=== PATIENT | female | born 1990 | race Caucasian/White ===

== ENCOUNTER → 2017-02-24 | Outpatient (CLI) | payer OTHER ==
[~2017-02-24] MED LIST: ACET-1311 PO; DLD/2 PO; DOCU100C31 PO; ERTA1INJ IV; FAMO20TA11 PO; FERR1TAB13 PO; FERR325T5 PO; FOLI1TAB7 PO; HPRI5M SQ; HYDR-3419 PO; HYDR0.1C8 TD; HYDR2TAB48 PO; HYDR4TAB78 PO; LCTX PO; LIDO5DIS10 TOP; OXYC1TAB3 PO; POLY3350 PO; PRENTAB26 PO; SENN-65 PO
[2017-02-24 17:25] LABS: BASO % 0.2 %; BASO ABS # 0.02 K/uL (0-0.2); COMPLETE YES; EOS % 4.1 %; IG% 0.7 %; LYMPH % 25.6 %; LYMPH ABS # 3.13 K/uL (1.2-3.4); MEAN CELL VOLUME 91.3 fL (80-100); MEAN CORPUSCULAR HEMOGLOBIN 29.6 pg (25-34); MEAN CORPUSCULAR HGB CONC 32.4 g/dl (32-36); MEAN PLATELET VOLUME 10.5 fL (7.4-10.4); MONO % 4.6 %; NEUT % 64.8 %; PLATELET COUNT 216 K/uL (130-400); WHITE BLOOD COUNT 12.25 K/uL (4.8-10.8)
[2017-02-24 18:54] LABS: URINE APPEARANCE CLEAR (CLEAR); URINE BILIRUBIN NEG (NEG); URINE COLOR DK YELLOW; URINE NITRITE NEG (NEG); URINE PH 6.5 (4.5-7.5); URINE SPECIFIC GRAVITY 1.021 (1.000-1.030); UROBILINOGEN NEG (NEG)
[2017-02-24 19:02] LABS: MANUAL MICROSCOPIC REQUIRED? NO; REVIEW REQ? NO
[2017-02-24 20:37] LABS: GTGD 50 Grams
[2017-02-27 14:28] LABS: CHLAMYDIA TRACH RNA*** NOT DETECTED (NOT DETECTED); GC (NEIS GONORRHOEAE)RNA** NOT DETECTED (NOT DETECTED)
== END | disposition home or self-care (01) ==
LOC: C.LAB1850 16:08
PROVIDERS: ATTEND Obstetrics & Gynecology
DX: Z34.82 Encounter for supervision of other normal pregnancy, second trimester (principal)

== ENCOUNTER → 2017-02-24 | Outpatient (CLI) | payer OTHER | END | disposition home or self-care (01) | LOC: C.PAPS 08:05 | PROVIDERS: ATTEND Obstetrics & Gynecology | DX: O09.30 Supervision of pregnancy with insufficient antenatal care, unspecified trimester (principal); R87.616 Satisfactory cervical smear but lacking transformation zone ==

== ENCOUNTER 2017-04-16 17:58 | Emergency (ER) | payer OTHER ==
[~2017-04-16] VITALS: Ht 165.1 cm; Wt 83.3 kg
[~2017-04-16 17:58] MED LIST changes: -DLD/2 PO; -DOCU100C31 PO; -ERTA1INJ IV; -FAMO20TA11 PO; -FERR325T5 PO; -FOLI1TAB7 PO; -HPRI5M SQ; -HYDR-3419 PO; -HYDR0.1C8 TD; -HYDR4TAB78 PO; -LCTX PO; -LIDO5DIS10 TOP; -OXYC1TAB3 PO; -POLY3350 PO; -SENN-65 PO
[2017-04-16 18:05] VITALS: Ht 165.1 cm; Wt 83.3 kg
[2017-04-16] MEDS ORDERED: SODIUM CHLORIDE 0.9% 1000ML 1,000 ML IV STA (18:31)
--- NOTE | 2017-04-16 18:41 | EMERGENCY ROOM VISIT NOTE ---
History Report prepared by Mir: Collins Mei Under the Supervision of: Dr. Rhonda Cee D.O. First contact with patient: 18:15 Chief Complaint: FEVER Stated Complaint: FEVER, VOMITING History of Present Illness The patient is a 26 year old female who presents to the Emergency Room with complaints of a constant fever noticed 1600 today. She states that the fever was 100.9, and then it was 101.5 at 1700. The patient states that she woke up, and she vomited, and then she vomited before arrival here. She states that she has a history of a chronic hip infection since last February, and she is not currently on any antibiotics. She states that her hip is a little more painful than usual, though it is not having any drainage. The patient additionally states that she is six [age] months , and she has been more fatigued today, and she has been having come abdominal cramping. Pt denies headache, sore throat, cough, vaginal discharge or bleeding, change in vision, chest pain, shortness of breath, diarrhea, pain with urination, and melena. She states that no one around her has been sick, recent travel, and she states that she has not had a flu shot. Review of EMR shows patient seen by wound care clinic yesterday and evaluated. Small area of dehiscence along old wound status post wound VAC just superior to the right hip. According to wound care clinic note, this was cultured and is pending at this time. Patient was advised on how to do dressing changes. Source of History: patient Onset: 1600 Position: other (global) Quality: other (fever) Timing: constant Associated Symptoms: + vomiting Note: Associated symptoms: Right hip pain Review of Systems See HPI for pertinent positives & negatives. A total of 10 systems reviewed and were otherwise negative. Past Medical & Surgical Medical Problems: (1) heart rate non-reassuring affecting management of mother (2) Post term Surgical Problems: (1) History of tonsillectomy (2) Previous section Family History No significant family history Social History Smoking Status: Current Every Day Smoker Alcohol Use: none Drug Use: none Marital Status: single Housing Status: lives with family Occupation Status: unemployed Current/Historical Medications Scheduled Ferrous Sulfate (Ferrous Sulfate), 325 MG PO DAILY Multivit/Min/Iron/Fol Ac/Pren ( Vitamin), 1 TAB PO DAILY Scheduled PRN Hydromorphone HCl (Hydromorphone HCl), 2 MG PO Q6H PRN for Pain Allergies Coded Allergies: Penicillins (Verified Allergy, Mild, HIVES, 03/10/16) Amoxicillin (Verified Allergy, Unknown, Rash, 03/10/16) Clindamycin (Verified Allergy, Unknown, Rash, 03/10/16) Sulfamethoxazole w/Trimethoprim (Verified Allergy, Unknown, RASH, 03/10/16) Physical Exam Vital Signs Date Time Temp Pulse Resp B/P (MAP) Pulse Ox O2 Delivery O2 Flow Rate FiO2 04/17/17 03:03 78 104/50 97 04/17/17 02:27 37.3 04/17/17 02:06 70 04/17/17 01:18 38.4 80 106/50 96 Room Air 04/16/17 22:00 37.0 04/16/17 22:00 37.0 89 15 114/59 98 Room Air 04/16/17 20:07 90 17 109/54 96 Room Air 04/16/17 18:05 37.3 107 18 115/55 96 Room Air Physical Exam GENERAL: alert, well appearing, well nourished, no distress, non-toxic EYE EXAM: normal conjunctiva, PERRL and EOM's grossly intact OROPHARYNX: no exudate, no mucocutaneous lesions, no erythema, lips, buccal mucosa, and tongue normal and mucous membranes are moist NECK: supple, no nuchal rigidity, no adenopathy, non-tender LUNGS: Clear to auscultation. Normal chest wall mechanics HEART: no murmurs, S1 normal and S2 normal ABDOMEN: Fundus is palpable consistent with dates. Mild generalized abdominal discomfort. Normo-active bowel sounds, no masses, no rebound or guarding. BACK: Back is symmetrical on inspection and there is no deformity, no midline tenderness, no CVA tenderness. SKIN: Small area of dehiscence that appears chronic along an otherwise healed wound surrounded by scarring. No increased warmth. No surrounding erythema to suggest cellulitis. No active drainage. UPPER EXTREMITIES: upper extremities are grossly normal. LOWER EXTREMITIES: Pain with palpation over the right hip. No pitting edema. NEURO EXAM: Normal sensorium, cranial nerves II-XII grossly intact, normal speech, no gross weakness of arms, no gross weakness of legs. Gross sensation intact. Medical Decision & Procedures ER Provider Diagnostic Interpretation: Radiology results have been interpreted by the radiologist and reviewed by me. CHEST ONE VIEW PORTABLE HISTORY: fever COMPARISON: Chest 04/01/2016. FINDINGS: The lungs are clear. Cardiac silhouette is normal in size. No pleural effusions. No pneumothorax. Incidental is made of a right azygos lobe. IMPRESSION: No acute process. Electronically signed by: Randy Augustine M.D. 04/16/2017 6:48 PM Dictated Date/Time: 04/16/2017 6:47 PM LIMITED (US) HISTORY: Generalized abdominal pain. COMPARISON STUDY: Abdomen and pelvis CT 04/01/2016. FINDINGS: Transabdominal scanning of the fetus was performed. heart rate was 156 bpm. The fetus is in a breech presentation. The cervix appears was. Posterior placenta. No subchorionic hematoma. Normal ovaries. Amniotic fluid index of 13.8 cm. Cumulative ultrasound age of 24 weeks and 2 days plus or minus one week and 1 day. A anatomical survey was not performed. IMPRESSION: Single viable 24 week and 2 day intrauterine gestation with a heart rate of 156 bpm. Electronically signed by: Randy Augustine M.D. 04/16/2017 9:34 PM Dictated Date/Time: 04/16/2017 9:31 PM MRI right hip: Severe uniform joint space narrowing in the right hip with small joint effusion. There is marrow edema and the acetabulum, femoral head, and femoral neck. There is a 70 chondral fracture of the lateral femoral head measuring 12 mm. Differential considerations include septic arthritis, unilateral inflammatory arthropathy, and rapidly progressive arthritis of the hip. Correlation with diagnostic joint aspiration is recommended. Radiologist: Rosas Hill M.D. Laboratory Results 04/16/17 18:59 Red Blood Count 3.99, Mean Corpuscular Volume 91.7, Mean Corpuscular Hemoglobin 30.3, Mean Corpuscular Hemoglobin Concent 33.1, Mean Platelet Volume 10.0, Neutrophils (%) (Auto) 67.7, Lymphocytes (%) (Auto) 22.0, Monocytes (%) (Auto) 6.8, Eosinophils (%) (Auto) 2.2, Basophils (%) (Auto) 0.1, Neutrophils # (Auto) 9.11, Lymphocytes # (Auto) 2.96, Monocytes # (Auto) 0.92, Eosinophils # (Auto) 0.29, Basophils # (Auto) 0.02 04/16/17 18:59 Test 04/16/17 18:55 04/16/17 18:59 04/16/17 19:35 Influenza Type A Antigen Neg for Influ A (NEG) Influenza Type B Antigen Neg for Influ B (NEG) White Blood Count 13.46 K/uL (4.8-10.8) Red Blood Count 3.99 M/uL (4.2-5.4) Hemoglobin 12.1 g/dL (12.0-16.0) Hematocrit 36.6 % (37-47) Mean Corpuscular Volume 91.7 fL (80-100) Mean Corpuscular Hemoglobin 30.3 pg (25-34) Mean Corpuscular Hemoglobin Concent 33.1 g/dl (32-36) Platelet Count 211 K/uL (130-400) Mean Platelet Volume 10.0 fL (7.4-10.4) Neutrophils (%) (Auto) 67.7 % Lymphocytes (%) (Auto) 22.0 % Monocytes (%) (Auto) 6.8 % Eosinophils (%) (Auto) 2.2 % Basophils (%) (Auto) 0.1 % Neutrophils # (Auto) 9.11 K/uL (1.4-6.5) Lymphocytes # (Auto) 2.96 K/uL (1.2-3.4) Monocytes # (Auto) 0.92 K/uL (0.11-0.59) Eosinophils # (Auto) 0.29 K/uL (0-0.5) Basophils # (Auto) 0.02 K/uL (0-0.2) RDW Standard Deviation 44.7 fL (36.4-46.3) RDW Coefficient of Variation 13.4 % (11.5-14.5) Immature Granulocyte % (Auto) 1.2 % Immature Granulocyte # (Auto) 0.16 K/uL (0.00-0.02) Erythrocyte Sedimentation Rate 5 mm/hr (0-21) Prothrombin Time 10.2 SECONDS (9.0-12.0) Prothromb Time International Ratio 1.0 (0.9-1.1) Anion Gap 7.0 mmol/L (3-11) Est Creatinine Clear Calc Drug Dose 233.0 ml/min Estimated GFR () > 150.0 Estimated GFR (Non- 145.0 BUN/Creatinine Ratio 17.7 (10-20) Lactic Acid Level 0.6 mmol/L (0.4-2.0) Calcium Level 8.0 mg/dl (8.5-10.1) Total Bilirubin 0.2 mg/dl (0.2-1) Aspartate Amino Transf (AST/SGOT) 11 U/L (15-37) Alanine Aminotransferase (ALT/SGPT) 14 U/L (12-78) Alkaline Phosphatase 81 U/L (45-117) C-Reactive Protein 0.50 mg/dl (0-0.29) Total Protein 6.0 gm/dl (6.4-8.2) Albumin 2.8 gm/dl (3.4-5.0) Globulin 3.2 gm/dl (2.5-4.0) Albumin/Globulin Ratio 0.9 (0.9-2) Lyme Disease IgG Antibody NEG (NEG) Lyme Disease IgM Antibody NEG (NEG) Urine Color DK YELLOW Urine Appearance CLOUDY (CLEAR) Urine pH 6.0 (4.5-7.5) Urine Specific [place] 1.025 (1.000-1.030) Urine Protein NEG (NEG) Urine Glucose (UA) NEG (NEG) Urine Ketones TRACE (NEG) Urine Occult Blood NEG (NEG) Urine Nitrite NEG (NEG) Urine Bilirubin NEG (NEG) Urine Urobilinogen NEG (NEG) Urine Leukocyte Esterase TRACE (NEG) Urine WBC (Auto) 1-5 /hpf (0-5) Urine RBC (Auto) 0-4 /hpf (0-4) Urine Hyaline Casts (Auto) 0 /lpf (0-5) Urine Epithelial Cells (Auto) >30 /lpf (0-5) Urine Bacteria (Auto) NEG (NEG) Urine Pathogenic Casts /lpf (0) Urine Mucus PRESENT (NONE PRSENT) Date/Time Source Procedure Growth Status 04/16/17 19:05 Throat Group A Streptococcus Screen - Final SPECIMEN NEGATIVE FOR GROUP A BETA ST... Complete 04/16/17 19:05 Throat Group A Streptococcus Screen ([facility]TERA) - Final NO BETA STREP. ISOLATED. Complete Laboratory results per my review. Medications Administered Medications (Trade) Dose Ordered Sig/Lennie Route Start Time Stop Time Status Last Admin Dose Admin Ondansetron HCl (Zofran 8mg Iv) 8 mg NOW ONCE IV 04/16/17 18:45 04/16/17 18:46 DC 04/16/17 19:00 8 MG Sodium Chloride 1,000 ml @ 999 mls/hr Q1H1M STAT IV 04/16/17 18:31 04/16/17 19:31 DC 04/16/17 19:00 999 MLS/HR Metoclopramide HCl (Reglan Inj) 10 mg NOW STAT IV 04/16/17 20:08 04/16/17 20:10 DC 04/16/17 20:19 10 MG Diphenhydramine HCl (Benadryl Inj) 12.5 mg NOW STAT IV 04/16/17 20:08 04/16/17 20:10 DC 04/16/17 20:18 12.5 MG Sodium Chloride 1,000 ml @ 999 mls/hr Q1H1M STAT IV 04/17/17 01:25 04/17/17 02:25 DC 04/17/17 01:40 999 MLS/HR Ondansetron HCl (Zofran Inj) 4 mg NOW STAT IV 04/17/17 01:25 04/17/17 01:27 DC 04/17/17 01:40 4 MG Acetaminophen (Tylenol Tab) 1,000 mg NOW STAT PO 04/17/17 01:25 04/17/17 01:27 DC 04/17/17 01:40 1,000 MG ECG Indication: other (fever) Rate (beats per minute): 87 Rhythm: normal sinus Findings: no acute ischemic change, no ectopy, other (Normal axis and normal intervals) ED Course 1817: The patient was evaluated in room B3. A complete history and physical exam was performed. 1831: Sodium Chloride 1000 ml @ 999 mls/hr IV 1845: Zofran 8mg IV 2002: I reevaluated the patient, and she states that she is still nauseous. 2007: Benadryl Inj 12.5mg IV, Reglan Inj 10mg IV 2145: I discussed the patient's case with Dr. Augustine, Radiology, and he recommends getting an MRI without. 2153: I reevaluated the patient, and I updated her on the treatment plan. 0125: Updated patient, leading to have slight headache and nausea again. Stated awaiting MRI results. 0140: I did patient results, temperature now 38.2. Tylenol and Zofran ordered as well as additional IV fluids. Page to [facility] orthopedics to discuss with her orthopedic surgeon down there Dr. Aldrich. 0155: D/W Dr. 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. Discussed hx, presentation and complaints tonight, labs, imaging. Able to compare to old records there including femur xray, and recent labs 03/23 with WBC 14.9. She had been seen the end of February and follow-up and had reported worsening right hip pain at that time. She had also been slowly decreasing her pain medications. Feels findings likely unchanged and chronic on MRI tonight. Has low suspicion for new infection. Would advise close follow-up but feels patient can be safely discharged. He will notify his colic the patient's primary orthopedic surgeon, but also asked that the patient call down to them on Tuesday to discuss close follow-up ligament injury with orthopedics as well as possibly with infectious disease. 0210: Updated patient and family at bedside in all results and discussion with [facility] orthopedics. They're concerned about her being by herself tonight given that she has been ill. Discussed with them that orthopedics felt she could be discharged and have close follow-up, and that I've no other focal source of infection. Patient with no other signs and symptoms to suggest need for lumbar puncture to rule out meningitis/encephalitis. More likely viral syndrome. Patient will stay with her mom tonight as a precaution. Discussed with them at length need for close follow-up, symptoms watch and return for, differential diagnosis, and again went over all results. He states they're hesitant to go home given that when she was first seen here last year she medic coming back to days later needed life flighted. I discussed with them the circumstances at that time versus the extensive testing and reassuring evaluation/results tonight. Discussed with them that based my conversation with orthopedics if they felt she was getting worse orthopedics plan was to discuss her case with infectious disease again to decide if she needed to be restarted on antibiotics, but this will need to be done carefully with ID input as well as OB input. They did not suggest that we restart antibiotics tonight. Medical Decision Differential diagnosis: Etiologies such as viral syndrome, otitis, pharyngitis, pneumonia, influenza, meningitis, urinary tract infection, sepsis, bacteremia, as well as others were entertained. Pt well appearing here despite fever at home but complicated history. Doubt any acute ob emergency, US reassuring. Labs reassuring. Mild leukocytosis which may be from alone, but is improved from one month ago after discussion with ortho at [facility]. Cultures sent from blood and wound clinic culture still unresulted from yesterday. No obvious wound infection or cellulitis. Strep negative. No abd pain. Initially pt afebrile, did spike temp while here, which responded to tylenol. Pt stated felt improved with IVF. No obvious infiltrate on cxr, UA not convincing for uti, did not feel warranted abdominal imaging given lack of other sx/exam findings, no abn discharge, no evidence of ENT infection other than mild nasal congestion/ rhinorrhea. Pt observed for many hours as a precaution and given recent hx, discussed with rad MRI of hip. These findings were then discussed with ortho at [facility]. Pt continued to appear well. Tolerated po. Discussed with her possible viral syndrome. Did not feel warranted empiric antibiotics. Discussed with pt close f/u with ortho as discussed with them. Discussed f/u with produce buyer as a precaution given her complicated hx, discussed at length sx to watch/return for, she verbalized understanding and was agreeable with plan. I also asked pt's name to be left with counseling case manager or charge nurse to receive a follow-up call in 24 hours to check on her. Consults Time Called: 2139 Consulting Physician: Dr. Augustine, Radiology Returned Call: 2145 I discussed the patient's case with Dr. Augustine, Radiology, and he recommends getting an MRI without. Impression Primary Impression: Fever Additional Impressions: Nausea & vomiting Scribe Attestation The scribe's documentation has been prepared under my direction and personally reviewed by me in its entirety. I confirm that the note above accurately reflects all work, treatment, procedures, and medical decision making performed by me. Departure Information Dispostion Home / Self-Care Referrals Jared Mendez M.D. (MEDICAL) (PCP) Patient Instructions My [facility] Additional Instructions Please follow up with your environmental management specialist on Tuesday. They're aware of your ER visit and will alert your regular orthopedic surgeon. Please drink plenty of water, use the nausea medication as needed. If you have pain or a fever please take Tylenol as directed on the bottle. Please also call and alert your PEST CONTROL SUPERVISOR. The ultrasound of your baby was reassuring. However given your complicated history and illness, please be rechecked by them to sure that your is progressing normally and that there are no other new concerns. If your temperature does not respond to Tylenol appropriately, your temperature is higher than 104F, he develop a worsening cough, noticed a rash or sores, have increased draining from your old wound, develop diarrhea, worsening abdominal pain, vaginal discharge, headache, recurrent vomiting, or you have any other new or concerning symptoms, please return the emergency room. The wound on your right side was cultured in the wound care clinic and that is pending. Blood cultures were drawn tonight and are pending also. Please return to the ER if you feel worse in any way. If any of the cultures are abnormal you will receive a phone call. Problem Qualifiers Primary Impression: Fever Fever type: unspecified Qualified Codes: R50.9 - Fever, unspecified Additional Impressions: Nausea & vomiting Vomiting type: unspecified Vomiting Intractability: non-intractable Qualified Codes: R11.2 - Nausea with vomiting, unspecified Weeks of gestation: 24 weeks Qualified Codes: Z3A.24 - 24 weeks gestation of
[2017-04-16] MEDS ORDERED: ONDANSETRON 8 MG/54 ML D5W IV ONE (18:45)
--- NOTE | 2017-04-16 18:49 | DIAGNOSTIC IMAGING REPORT ---
CHEST ONE VIEW PORTABLE HISTORY: fever COMPARISON: Chest 04/01/2016. FINDINGS: The lungs are clear. Cardiac silhouette is normal in size. No pleural effusions. No pneumothorax. Incidental is made of a right azygos lobe. IMPRESSION: No acute process. Electronically signed by: Randy Augustine M.D. 04/16/2017 6:48 PM Dictated Date/Time: 04/16/2017 6:47 PM
[2017-04-16] MEDS ORDERED: FERR325T5 PO (19:12)
[2017-04-16] MEDS ORDERED: DLD/2 PO (19:12)
[2017-04-16 19:18] LABS: BASO % 0.1 %; BASO ABS # 0.02 K/uL (0-0.2); COMPLETE YES; EOS % 2.2 %; HEMATOCRIT 36.6 % (37-47); IG% 1.2 %; LYMPH ABS # 2.96 K/uL (1.2-3.4); MEAN CELL VOLUME 91.7 fL (80-100); MEAN CORPUSCULAR HEMOGLOBIN 30.3 pg (25-34); MEAN CORPUSCULAR HGB CONC 33.1 g/dl (32-36); MONO % 6.8 %; NEUT % 67.7 %; PLATELET COUNT 211 K/uL (130-400); RED BLOOD COUNT 3.99 M/uL (4.2-5.4); WHITE BLOOD COUNT 13.46 K/uL (4.8-10.8)
[2017-04-16 19:29] LABS: PROTHROMBIN TIME (PATIENT) 10.2 SECONDS (9.0-12.0)
[2017-04-16 19:45] LABS: URINE APPEARANCE CLOUDY (CLEAR); URINE BILIRUBIN NEG (NEG); URINE COLOR DK YELLOW; URINE EPITHELIAL CELL AUTO >30 /lpf (0-5); URINE NITRITE NEG (NEG); URINE SPECIFIC GRAVITY 1.025 (1.000-1.030); UROBILINOGEN NEG (NEG); ZZUR CULT IF INDIC CLEAN CATCH NO
[2017-04-16 19:47] LABS: ALT/SGPT 14 U/L (12-78); AST/SGOT 11 U/L (15-37); BLOOD UREA NITROGEN 7 mg/dl (7-18); BUN/CREATININE RATIO 17.7 (10-20); CARBON DIOXIDE 22 mmol/L (21-32); CHLORIDE 106 mmol/L (98-107); CREATININE 0.39 mg/dl (0.60-1.20); GLUCOSE 74 mg/dl (70-99); POTASSIUM 3.9 mmol/L (3.5-5.1); SODIUM 135 mmol/L (136-145)
[2017-04-16 19:49] LABS: ALB/GLOB RATIO 0.9 (0.9-2); ALKALINE PHOSPHATASE 81 U/L (45-117)
[2017-04-16 19:51] LABS: MANUAL MICROSCOPIC REQUIRED? NO; REVIEW REQ? YES
[2017-04-16 19:59] LABS: URINE MUCUS PRESENT (NONE PRSENT)
[2017-04-16 20:01] LABS: LYME DISEASE AB IGG NEG (NEG); LYME DISEASE AB IGM NEG (NEG)
[2017-04-16] MEDS ORDERED: DiphenhydrAMINE HCL 50 MG/ML VIAL IV STA (20:08)
[2017-04-16] MEDS ORDERED: METOCLOPRAMIDE HCL INJ 5 MG/ML 2 ML VIAL IV STA (20:08)
--- NOTE | 2017-04-16 21:36 | DIAGNOSTIC IMAGING REPORT ---
LIMITED (US) HISTORY: Generalized abdominal pain. COMPARISON STUDY: Abdomen and pelvis CT 04/01/2016. FINDINGS: Transabdominal scanning of the fetus was performed. heart rate was 156 bpm. The fetus is in a breech presentation. The cervix appears was. Posterior placenta. No subchorionic hematoma. Normal ovaries. Amniotic fluid index of 13.8 cm. Cumulative ultrasound age of 24 weeks and 2 days plus or minus one week and 1 day. A anatomical survey was not performed. IMPRESSION: Single viable 24 week and 2 day intrauterine gestation with a heart rate of 156 bpm. Electronically signed by: Randy Augustine M.D. 04/16/2017 9:34 PM Dictated Date/Time: 04/16/2017 9:31 PM
[2017-04-17] MEDS ORDERED: SODIUM CHLORIDE 0.9% 1000ML 1,000 ML IV STA (01:25)
[2017-04-17] MEDS ORDERED: ACETAMINOPHEN 500 MG TAB PO STA (01:25)
[2017-04-17] MEDS ORDERED: ONDANSETRON INJ 2 MG/ML 2 ML VIAL IV STA (01:25)
[2017-04-17 02:27] VITALS: TEMP 37.3
[2017-04-17] MEDS ORDERED: ONDANSETRON HOME PACK 4MG OD TAB PO ONE (02:30)
[2017-04-17 03:03] VITALS: BP 104/50; PULSE 78; O2SAT 97
--- NOTE | 2017-04-17 07:08 | DIAGNOSTIC IMAGING REPORT ---
R LOWER EXT JOINT WITHOUT CLINICAL HISTORY: fever, hx osteo/nec fasc TECHNIQUE: Multiaxial MRI acquisition COMPARISON STUDY: CT 04/01/2016 FINDINGS: Intrauterine is noted. Severe degenerative change right hip. Developing subchondral changes which may indicate developing avascular process. Moderate edematous change of the acetabulum, femoral head on the right, as well as femoral neck region. Small joint effusion. No evidence for acetabular protrusion. Bladder is midline. Surrounding soft tissues show minimal edematous change. No well-defined drainable abscess or collection is appreciated. IMPRESSION: 1. Limited exam demonstrating significant degenerative change right hip joint space. 2. Subchondral edema right femoral head suggesting the possibility of early avascular necrosis. 3. Very small joint effusion. 4.. Additional bone marrow edema of the right femoral neck, femoral head, and right acetabulum. Multiple etiologies are possible including degenerative and/or posttraumatic change, with possibly of infectious process perhaps less likely although impossible to exclude given the patient's prior history The above report was generated using voice recognition software. It may contain grammatical, syntax or spelling errors. Electronically signed by: Willian Kaufman M.D. 04/17/2017 7:07 AM Dictated Date/Time: 04/17/2017 7:01 AM
[2017-04-22] MEDS ORDERED: HYDR-3419 PO (14:10)
== END 2017-04-17 03:04 | disposition home or self-care (01) ==
LOC: C.EDB 18:00
DX: O21.9 Vomiting of pregnancy, unspecified (principal); R50.9 Fever, unspecified; F17.200 Nicotine dependence, unspecified, uncomplicated; Z98.890 Other specified postprocedural states; Z79.899 Other long term (current) drug therapy; Z88.0 Allergy status to penicillin; Z88.1 Allergy status to other antibiotic agents; Z88.2 Allergy status to sulfonamides; Z88.3 Allergy status to other anti-infective agents

== ENCOUNTER → 2017-05-17 | Outpatient (CLI) | payer OTHER ==
[~2017-05-17] MED LIST changes: -ACET-1311 PO; -FERR1TAB13 PO; +FERR325T5 PO; -HYDR2TAB48 PO; +OXYC1CAP5 PO
[2017-05-17 16:41] LABS: HEMATOCRIT 40.9 % (37-47)
[2017-05-17 16:50] LABS: GTGD 50 Grams
[2017-05-17 19:19] LABS: URINE APPEARANCE CLEAR (CLEAR); URINE BILIRUBIN NEG (NEG); URINE COLOR YELLOW; URINE EPITHELIAL CELL AUTO >30 /lpf (0-5); URINE NITRITE NEG (NEG); URINE SPECIFIC GRAVITY 1.019 (1.000-1.030); UROBILINOGEN NEG (NEG)
[2017-05-17 19:22] LABS: MANUAL MICROSCOPIC REQUIRED? NO; REVIEW REQ? YES
[2017-05-17 19:56] LABS: BENZODIAZEPINE, URINE NEG (NEG); COCAINE,URINE NEG (NEG); PHENCYCLIDINE, URINE NEG (NEG)
== END | disposition home or self-care (01) ==
LOC: C.LAB1850 15:24
PROVIDERS: ATTEND Obstetrics & Gynecology
DX: O09.93 Supervision of high risk pregnancy, unspecified, third trimester (principal); O99.323 Drug use complicating pregnancy, third trimester; Z3A.00 Weeks of gestation of pregnancy not specified

== ENCOUNTER → 2017-07-01 | Outpatient (CLI) | payer OTHER | END | disposition home or self-care (01) | LOC: C.LABSPEC 17:34 | PROVIDERS: ATTEND Obstetrics & Gynecology | DX: O09.93 Supervision of high risk pregnancy, unspecified, third trimester (principal); Z3A.00 Weeks of gestation of pregnancy not specified ==

== ENCOUNTER 2017-07-22 05:41 | Inpatient (IN) | payer OTHER ==
--- NOTE | 2017-07-21 13:42 | PAT Medication Instructions ---
Service Date Jul 21, 2017. Current Home Medication List Acetaminophen (Tylenol), 500 MG PO PRN Diphenhydramine Hcl (Benadryl Allergy), 25 MG PO PRN Multivit/Min/Iron/Fol Ac/Pren ( Vitamin), 1 TAB PO QPM Medication Instructions For Your Scheduled Surgery - Hold the following medications the morning of surgery: Diphenhydramine Hcl (Benadryl Allergy), 25 MG PO PRN - Take the following medications the morning of surgery with a sip of water: Acetaminophen (Tylenol), 500 MG PO PRN (okay to take up to 4 hours prior to surgery if needed) - Take the following medications as scheduled the night before surgery: Acetaminophen (Tylenol), 500 MG PO PRN i(if needed) Diphenhydramine Hcl (Benadryl Allergy), 25 MG PO PRN i(if needed) Multivit/Min/Iron/Fol Ac/Pren ( Vitamin), 1 TAB PO QPM If you have any questions please call us at [phone] or [phone] or [phone]
--- NOTE | 2017-07-21 13:59 | HISTORY & PHYSICAL EXAMINATION ---
DATE OF ADMISSION: 07/22/2017 PREOPERATIVE HISTORY AND PHYSICAL ADMISSION HISTORY: 1. Intrauterine at 39 and 2/7th weeks. 2. History of previous section x2, and here for repeat. 3. Drug use affecting . HISTORY OF PRESENT ILLNESS: Louise is a 26-year-old 3, para 2-0-0-2, with an EDC of 07/27/2017 making her 39 and 2/7th weeks on the date of admission. She presents for repeat section. Her history is complicated by 2 previous sections, one in 2013 and one in 2014, the first was for nonreassuring heart testing and the second was for failure to progress after an attempted . She presents for #3. This has been complicated by late presentation to care. Her first OB visit was at 18 weeks 1 day. She states that she was unsure about her last menstrual period. She has been taking chronic narcotics throughout the and per the patient's report, has been weaning throughout the . She notes currently today, but the only medication she is taking is vitamins and she is not currently taking narcotics. Review of the prescription drug monitoring program data shows that the patient's last oxycodone prescription was filled in June 17 that was for 8 tablets. She had filled in June 01 for 21, in May 13 for 43, in May 09 for 21, in April 21 for 55; all of these were oxycodone. Prior to that she has been filling for hydromorphone, her last prescription for that filled was April 05, this was 120 tablets. Most of these prescriptions have been through her PCP. She has not been receiving narcotics from this office. CYS is involved in this patient's care. She had a drug profile done May 17 that was completely negative. The patient's history also complicated by chronic hip issues for which she walks on crutches. ALLERGIES: BACTRIM, HIVES; PENICILLIN, HIVES; SULFA, HIVES; CLINDAMYCIN, HIVES MEDICATIONS: Admits to only vitamin. PAST MEDICAL HISTORY: The patient has a history of the above-noted infection in pelvic bones and hip joints that has been treated since February of 2016. She denies thyroid disease, asthma, heart disease, heart murmur, diabetes, liver or kidney problems. PAST SURGICAL HISTORY: She has had a right hip surgery but denies other surgeries. SOCIAL HISTORY: The patient currently denies alcohol, tobacco or illicit drug use. She has a history of positive chlamydia and gonorrhea in a previous but in this was negative. PHYSICAL EXAMINATION: GENERAL: This is a well-developed, well-nourished white female in no acute distress. VITAL SIGNS: Blood pressure 112/74, weight 205.4 pounds. NECK: Supple without thyromegaly or lymphadenopathy. CHEST: Clear to auscultation bilaterally. CARDIOVASCULAR: Regular rate and rhythm without murmurs, gallops or rubs. BACK: Without costovertebral angle tenderness. ABDOMEN: Gravid and soft. EXTREMITIES: Show evidence of surgery of the right hip and area is covered with a white 4 x4. The extremities show trace edema but are otherwise benign. LABORATORY DATA: Blood type O negative, antibody negative, Pap negative, rubella immune, RPR nonreactive, hepatitis B negative, HIV negative, chlamydia and gonorrhea cultures negative, 1 hour glucose 103 and 94. She received RhoGAM on 05/17/2017 and her GBS is negative. ASSESSMENT AND PLAN: Louise is a 3, para 2-0-0-2, with an expected date of completion of 07/27/2017 who has history of 2 previous sections and now presents for repeat. The risks of the surgery were discussed with the patient including risks of anesthesia, bleeding requiring transfusion, infection, poor wound healing, damage to surrounding structures including bowel, bladder, vessels, nerves and ureters with need for further surgery, hospitalization or intervention. Discussed the risk of PE and urinary retention as well as the other risks of any surgery including heart attack, blood clot, stroke or . Questions were asked and answered. Consent was reviewed and signed. The patient understands she will be drug tested upon admission to labor and delivery tomorrow morning. She understands that CYS will be notified of her admission. The patient has surgery planned for July 22. NILESH
[2017-07-21 15:16] LABS: BASO % 0.4 %; BASO ABS # 0.06 K/uL (0-0.2); EOS % 1.1 %; EOS ABS # 0.16 K/uL (0-0.5); HEMOGLOBIN 13.1 g/dL (12.0-16.0); IG# 0.55 K/uL (0.00-0.02); LYMPH % 20.7 %; LYMPH ABS # 3.08 K/uL (1.2-3.4); MEAN CELL VOLUME 93.3 fL (80-100); MEAN CORPUSCULAR HEMOGLOBIN 31.3 pg (25-34); MEAN CORPUSCULAR HGB CONC 33.6 g/dl (32-36); MEAN PLATELET VOLUME 10.5 fL (7.4-10.4); MONO % 4.7 %; NEUT % 69.4 %; NEUT ABS # 10.32 K/uL (1.4-6.5); PLATELET COUNT 199 K/uL (130-400); RED CELL DISTRIBUTION WIDTH CV 13.4 % (11.5-14.5); RED CELL DISTRIBUTION WIDTH SD 45.6 fL (36.4-46.3); WHITE BLOOD COUNT 14.87 K/uL (4.8-10.8)
[~2017-07-22] VITALS: Ht 165.1 cm; Wt 91.8 kg
[2017-07-22] VITALS (12 sets, daily range): BP systolic 115–120; BP diastolic 69–75; PULSE 81–88; TEMP 36.7–37; O2SAT 94–100; Ht 165.1 cm; Wt 91.8 kg
[~2017-07-22 05:41] MED LIST changes: +ACET-1256 PO; +DIPH1TAB87 PO; -FERR325T5 PO; -OXYC1CAP5 PO
[2017-07-22] MEDS ORDERED: CITRIC ACID/SODIUM CITRATE 15 ML UDC PO SCH (06:00)
[2017-07-22] MEDS ORDERED: CEFAZOLIN IV 2,000 MG in SYRINGE 0 ML IV STA (06:25)
[2017-07-22] MEDS ORDERED: LACTATED RINGER'S 1000ML 1,000 ML IV SCH ×2 (06:30→08:44)
[2017-07-22] MEDS ORDERED: FENTANYL CITRATE INJ 50 MCG/1 ML 2 ML VIAL ONE (07:29)
[2017-07-22] MEDS ORDERED: OXYTOCIN INJ 10 UNITS/ML VIAL ONE ×2 (07:30→08:10)
[2017-07-22] MEDS ORDERED: MoRPHine SULFATE PF 1 MG/ML 10 ML AMP/VIAL ONE (07:30)
[2017-07-22] MEDS ORDERED: PHENYLEPHRINE 100MCG/ML 5ML SYR ONE (08:07)
[2017-07-22] MEDS ORDERED: ONDANSETRON INJ 2 MG/ML 2 ML VIAL ONE (08:12)
[2017-07-22] MEDS ORDERED: DC PCA PRN (08:45)
[2017-07-22] MEDS ORDERED: LANOLIN OINT EXT PRN (08:45)
[2017-07-22] MEDS ORDERED: NALOXONE HCL INJ 1 MG in SODIUM CHLORIDE 0.9% 1000ML 1,000 ML IV PRN (08:59)
[2017-07-22] MEDS ORDERED: SODIUM CHLORIDE 0.9% 1000ML 1,000 ML IV PRN (08:59)
[2017-07-22] MEDS ORDERED: LACTATED RINGER'S 1000ML 500 ML IV PRN (08:59)
[2017-07-22] MEDS ORDERED: NALOXONE HCL INJ 0.08 MG in SYRINGE 1.8 ML IV PRN (08:59)
[2017-07-22] MEDS ORDERED: ONDANSETRON INJ 2 MG/ML 2 ML VIAL IV PRN (09:00)
[2017-07-22] MEDS: SIMETHICONE 80 MG CHEW PO SCH ×4 (09:00→20:30)
[2017-07-22] MEDS ORDERED: EpHEDrine SULFATE INJ 50 MG/ML AMP IV PRN (09:00)
[2017-07-22] MEDS ORDERED: NO NARCOTICS OR SEDATIVES SCH (09:00)
[2017-07-22] MEDS ORDERED: NALBUPHINE HCL INJ 10 MG/ML AMP IV PRN (09:00)
[2017-07-22] MEDS ORDERED: NALOXONE HCL 0.4 MG/1 ML VIAL/CARP IV PRN (09:00)
[2017-07-22] MEDS ORDERED: MoRPHine SULFATE PF 1 MG/ML 10 ML AMP/VIAL EPI PRN (09:00)
--- NOTE | 2017-07-22 09:11 | Anesthesiology Progress Note ---
Anesthesia Post Op Note Date & Time Jul 22, 2017 at 09:08 Notes Mental Status: alert / awake / arousable, participated in evaluation Pt Amnestic to Procedure: Yes Nausea / Vomiting: adequately controlled Pain: adequately controlled Airway Patency, RR, SpO2: stable & adequate BP & HR: stable & adequate Hydration State: stable & adequate Neuraxial Anesthesia: was administered, sensory block is resolving Anesthetic Complications: no major complications apparent The patient was given morphine IV in the OR. She had some redness and itchiness after it was administered likely from histamine release. Her vital signs remained stable throughout. She is awake and stable in recovery now.
[2017-07-22] MEDS ORDERED: OXYTOCIN INJ 20 UNITS in LACTATED RINGER'S 1000ML 1,000 ML IV SCH (09:30)
[2017-07-22] MEDS: DiphenhydrAMINE HCL 50 MG/ML VIAL IV PRN ×2 (09:49→20:30)
--- NOTE | 2017-07-22 09:49 | [facility] Post Operative Brief Note ---
Immediate Operative Summary Operative Date Jul 22, 2017. Pre-Operative Diagnosis INTERUTERINE AT 39 AND 2/7 WEEKS WITH HISTORY OF PRIOR CAESAREAN SECTIONS X2 Post-Operative Diagnosis SAME PRE-OP Procedure(s) Performed REPEAT LOWER TRANSVERSE CAESAREAN SECTION Surgeon DR. PACE Whip Sawyer Surgeon(s) DR. CORTES Estimated Blood Loss 600 Findings UTERUS GRAVID, NL TUBES AND OVARIES, FETUS CEPHALIC, APGARS 8/9. WEIGHT PENDING. Specimens PLACENTA CORD BLOOD Drains GONZALEZ Anesthesia SPINAL Complication(s) None Disposition L&D
--- NOTE | 2017-07-22 10:20 | OPERATIVE REPORT ---
DATE OF OPERATION: 07/22/2017 PREOPERATIVE DIAGNOSES: 1. Intrauterine at 39-2/7 weeks. 2. History of previous section x2. POSTOPERATIVE DIAGNOSES: Same. PROCEDURE: Repeat lower transverse section. SURGEON: Dr. America Hodgson. CHARTER COORDINATOR: Deena Alejandre, MS3 and Kalpesh Cox, PGY 1. ESTIMATED BLOOD LOSS: 600 mL. FLUIDS: 2200 mL. URINE OUTPUT: 100 mL clear yellow urine draining from the bladder at the end of the procedure. INDICATIONS: Louise is a 3, para 2-0-0-2 female at 39 and 2/7 weeks. She has had previous section x2 and now presents for repeat section. FINDINGS: Gravid uterus. Normal tubes and ovaries bilaterally. Delivered a viable fetus from the cephalic presentation. Apgars 8 and 9. Weight pending. COMPLICATIONS: None. DRAINS: Segura. DISPOSITION: To recovery room in stable condition. DESCRIPTION OF PROCEDURE: The patient was taken to the operating room, where she was identified verbally and by bracelet. She was seated on the operating table, where spinal anesthetic was placed by anesthesia. She was then placed in dorsal supine position with leftward tilt. Segura catheter was placed sterilely and she was prepped and draped in the normal sterile fashion. Her anesthetic was tested and found to be adequate and then, a timeout was performed, identifying correct patient, procedure and positioning. The patient was given Ancef as a preoperative antibiotic and did not appear to have any immediate allergies or reactions to this. A Pfannenstiel skin incision was made with a knife over the previous incision. This was taken down to the underlying layer of fascia with the knife. Bleeding was attended to with Bovie electrocautery. The fascia was incised in the midline with the knife and taken out laterally with scissors. Superior edge of the fascial incision was grasped and elevated and the underlying layer of rectus muscle was taken off bluntly with scissors. In a similar fashion, the inferior edge of the fascial incision was grasped and elevated and the underlying layer of rectus muscle was taken off bluntly with scissors. The peritoneum was entered bluntly. The manual lathe operator's finger was placed into the peritoneum and no significant adhesive disease was noted. The muscles were sharply in the midline. The peritoneum was taken inferiorly sharply with scissors. The incision was stretched. Bladder blade was placed. The bladder flap was created by grasping the vesicouterine peritoneum, entering with scissors and taking out laterally with scissors. The bladder flap was created digitally. The bladder blade was replaced. Hysterotomy incision was scored with a knife. The uterus was entered with a snap. Clear fluid was noted. The incision was stretched both with the manual lathe operator's fingers and then cut on the bilateral sides with bandage scissors. The manual lathe operator's hand was placed into the uterus and the head was delivered atraumatically through the incision using fundal pressure. There was no nuchal cord. The nose and mouth were bulb suctioned and the rest of the infant was then delivered without difficulty. There was immediate cry. The baby was vigorous. The nose and mouth were again bulb suctioned. The cord was clamped and cut and the was handed off to waiting procedures analyst for drying and attention. Cord blood and segment were obtained. The placenta was manually extracted. The uterus was exteriorized and cleared of all clot and debris with moistened laparotomy sponges. The hysterotomy incision was repaired in a running locked layer of 0 Vicryl and then an imbricating layer of 0 Vicryl. Hemostasis and good uterine tone was obtained with dilute Pitocin. The posterior cul-de-sac was irrigated and cleared of all clot and debris. Hysterotomy incision was again inspected and found to be hemostatic. The uterus was reanteriorized. The hysterotomy incision was again inspected. There were some oozing areas that were attended to with Bovie electrocautery and hemostasis was noted to be excellent. The muscles were reapproximated in midline using interrupted sutures of 0 Vicryl. The fascia was reapproximated starting at the edges and meeting at the midline using 0 Vicryl. The subcuticular tissue was irrigated and found to be hemostatic. The subcuticular tissue was reapproximated using interrupted horizontal mattress sutures of 2-0 Vicryl and skin was then closed with linda. All sponge, lap and needle counts were correct x2. The patient tolerated the procedure well and was taken to recovery room in stable condition. I attest to the content of the Intraoperative Record and any orders documented therein. Any exception s are noted below.
[2017-07-22] MEDS: KETOROLAC TROMETHAMINE 30 MG/ML VIAL IV. PRN ×2 (11:26→20:29)
[2017-07-22] MEDS: MoRPHine SULFATE 2 MG/ML CARP IV PRN ×2 (12:33→19:04)
[2017-07-22] MEDS: MEPERIDINE HCL 25 MG/ML CARP IV PRN (17:19)
[2017-07-22] MEDS: DOCUSATE SODIUM 100 MG CAP PO SCH (20:30)
[2017-07-23] VITALS (7 sets, daily range): BP systolic 93–122; BP diastolic 58–72; PULSE 71–83; TEMP 36.5–36.9; O2SAT 95–97
[2017-07-23] MEDS: MEPERIDINE HCL 25 MG/ML CARP IV PRN (00:29)
[2017-07-23] MEDS: MoRPHine SULFATE 2 MG/ML CARP IV PRN ×2 (00:57→01:04)
[2017-07-23] MEDS ORDERED: MEPERIDINE HCL 50 MG/ML CARP IV PRN ×2 (01:30)
[2017-07-23] MEDS ORDERED: KETOROLAC TROMETHAMINE 30 MG/ML VIAL IV. PRN (01:30)
[2017-07-23] MEDS ORDERED: DiphenhydrAMINE HCL 50 MG/ML VIAL IV PRN (01:30)
[2017-07-23] MEDS ORDERED: DC INTRASPINAL MORPHINE ONE (01:30)
[2017-07-23] MEDS: OXYCODONE/ACETAMINOPHEN 5-325 TAB PO PRN ×6 (04:44→22:06)
[2017-07-23 07:30] LABS: BASO % 0.2 %; BASO ABS # 0.02 K/uL (0-0.2); EOS % 2.2 %; EOS ABS # 0.28 K/uL (0-0.5); HEMATOCRIT 34.7 % (37-47); HEMOGLOBIN 11.5 g/dL (12.0-16.0); IG# 0.27 K/uL (0.00-0.02); LYMPH % 25.4 %; LYMPH ABS # 3.31 K/uL (1.2-3.4); MEAN CELL VOLUME 94.8 fL (80-100); MEAN CORPUSCULAR HEMOGLOBIN 31.4 pg (25-34); MEAN CORPUSCULAR HGB CONC 33.1 g/dl (32-36); MONO % 9.3 %; MONO ABS # 1.21 K/uL (0.11-0.59); NEUT % 60.8 %; NEUT ABS # 7.92 K/uL (1.4-6.5); PLATELET COUNT 162 K/uL (130-400); RED CELL DISTRIBUTION WIDTH CV 13.6 % (11.5-14.5); RED CELL DISTRIBUTION WIDTH SD 47.3 fL (36.4-46.3); WHITE BLOOD COUNT 13.01 K/uL (4.8-10.8)
[2017-07-23] MEDS: PRENATAL VITAMIN TAB PO SCH (07:40)
[2017-07-23] MEDS: DOCUSATE SODIUM 100 MG CAP PO SCH ×2 (07:40→19:58)
[2017-07-23] MEDS: SIMETHICONE 80 MG CHEW PO SCH ×4 (07:40→19:58)
--- NOTE | 2017-07-23 07:59 | OB/GYN Progress Note ---
KEYBOARD TEACHER Progress Note Date of Service Jul 23, 2017. Subjective conversation w/ patient, conversation w/ family, physical exam, chart review, lab review Ambulation: limited ambulation Voiding: no voiding problems Passing Gas: Yes Diet Tolerance: Clear Liquids Lochia: Moderate Feeding Type: Breast Feeding Pain: 8/10 pain with movement; hip and at incision Review of Systems Constitutional: No fever, No chills, No sweats Respiratory: No cough, No shortness of breath Cardiac: No chest pain, No palpitations Abdomen: + nausea, No pain, No vomiting Objective Vital Signs Date Time Temp Pulse Resp B/P (MAP) Pulse Ox O2 Delivery O2 Flow Rate FiO2 07/23/17 04:50 36.8 71 16 93/58 (70) 96 Room Air 07/23/17 01:30 18 97 07/23/17 00:30 36.9 82 18 104/68 (80) 95 Room Air 07/23/17 00:30 95 Room Air 07/23/17 00:30 18 95 07/22/17 23:15 18 97 07/22/17 22:00 16 100 07/22/17 21:00 16 98 07/22/17 20:40 16 100 07/22/17 20:40 36.8 81 16 120/72 (88) 100 Room Air 07/22/17 20:00 18 97 07/22/17 19:00 20 99 07/22/17 18:00 18 100 07/22/17 17:00 18 99 07/22/17 16:00 36.7 85 18 120/75 (90) 99 Room Air 07/22/17 16:00 99 Room Air 07/22/17 16:00 18 99 07/22/17 14:15 37.0 88 18 115/69 (84) 94 Room Air 07/22/17 14:15 18 94 07/22/17 14:15 94 Room Air Physical Exam General Appearance: WELL-APPEARING, WD/WN, NO APPARENT DISTRESS Respiratory/Chest: chest non-tender, lungs clear, normal breath sounds Cardiovascular: regular rate, rhythm, no murmur Abdomen: normal bowel sounds Fundus: Firm, Relation to Umbilicus (1 digit below ) Incision Description: Clean, Dry & Intact Extremities: + pertinent finding (draining sinus on right hip, erythema and warm overlying skin of right hip ) Laboratory Results Last 24 Hours Test 07/23/17 07:13 White Blood Count 13.01 K/uL Red Blood Count 3.66 M/uL Hemoglobin 11.5 g/dL Hematocrit 34.7 % Mean Corpuscular Volume 94.8 fL Mean Corpuscular Hemoglobin 31.4 pg Mean Corpuscular Hemoglobin Concent 33.1 g/dl Platelet Count 162 K/uL Mean Platelet Volume 10.0 fL Neutrophils (%) (Auto) 60.8 % Lymphocytes (%) (Auto) 25.4 % Monocytes (%) (Auto) 9.3 % Eosinophils (%) (Auto) 2.2 % Basophils (%) (Auto) 0.2 % Neutrophils # (Auto) 7.92 K/uL Lymphocytes # (Auto) 3.31 K/uL Monocytes # (Auto) 1.21 K/uL Eosinophils # (Auto) 0.28 K/uL Basophils # (Auto) 0.02 K/uL RDW Standard Deviation 47.3 fL RDW Coefficient of Variation 13.6 % Immature Granulocyte % (Auto) 2.1 % Immature Granulocyte # (Auto) 0.27 K/uL Assessment and Plan Post-Op Day Number: 1 Continue Routine Care: 26 yo female now 3 deleivered 39.2 wk via Csection Post op day 2 Pt is GBS -/RI/O- Received Rhogam on 05/17 Reviewed labs and vitals; stable overnight Pt had Segura removed this morning and was sitting at the side of the bed Plan; 1. Continue to monitor lochia, pain. 2.Follow I/O 3.Encourage and assist ambulation 4. Anti-D profile 3. drug abuse treatment specialist consult Resident Physician Supervision Note: I interviewed and examined the patient. Discussed with Dr. Cox and agree with findings and plan as documented in the note. Any exceptions or clarifications are listed here: Patient is doing fairly well from a postop standpoint. She has pain at her incision and hip. She notes that her hip is more swollen and red. She is concerned about infection. Plan wound consult. Will continue to try our best to manage her pain. Patient has already been served with court papers that the baby will be taken into custody upon d/c and she has a court date for this baby on 07/26. Documented By: America Hodgson
[2017-07-23] MEDS ORDERED: DIPHTHERIA/TETANUS/PERTUSSIS 0.5 ML SYR/VIAL IM. ONE (08:00)
[2017-07-23] MEDS: IBUPROFEN 600 MG TAB PO PRN ×4 (08:58→22:02)
[2017-07-24] MEDS: OXYCODONE/ACETAMINOPHEN 5-325 TAB PO PRN ×7 (02:07→22:10)
[2017-07-24] MEDS: IBUPROFEN 600 MG TAB PO PRN ×5 (02:07→21:54)
--- NOTE | 2017-07-24 07:01 | Progress Note ---
Subjective Jul 24, 2017. Subjective conversation w/ patient, physical exam Ambulation: ambulating normally Voiding: no voiding problems Passing Gas: Yes Diet Tolerance: Regular Diet Lochia: Moderate Feeding Type: Bottle Feeding Pain: controlled Comment: Notes right thigh is somewhat swollen, patient states this has been like this for the past few weeks, has been evaluated by wound care. Review of Systems Constitutional: No problem reported Respiratory: No problem reported Cardiac: No problem reported Breast: No problem reported Abdomen: No problem reported Female : No problem reported Objective Vital Signs Date Time Temp Pulse Resp B/P (MAP) Pulse Ox O2 Delivery O2 Flow Rate FiO2 07/23/17 23:15 Room Air 07/23/17 23:15 36.6 83 16 112/72 (85) 97 Room Air 07/23/17 16:20 36.5 80 20 122/71 (88) Room Air 07/23/17 16:20 Room Air 07/23/17 12:20 36.8 81 20 101/64 (76) Room Air 07/23/17 08:15 Room Air 07/23/17 08:15 36.6 80 20 109/69 (82) Room Air Physical Exam General Appearance: WELL-APPEARING, NO APPARENT DISTRESS Respiratory/Chest: no respiratory distress Cardiovascular: regular rate, rhythm Abdomen: non tender, soft Fundus: Firm Incision Description: Clean, Dry & Intact Extremities: + pertinent finding (right lateral thigh with some swelling, patient notes this is the same for the past few weeks. Wound at hip still healing. ) Laboratory Results Last 24 Hours Test 07/23/17 07:13 07/24/17 06:46 White Blood Count 13.01 K/uL Red Blood Count 3.66 M/uL Hemoglobin 11.5 g/dL Hematocrit 34.7 % Mean Corpuscular Volume 94.8 fL Mean Corpuscular Hemoglobin 31.4 pg Mean Corpuscular Hemoglobin Concent 33.1 g/dl Platelet Count 162 K/uL Mean Platelet Volume 10.0 fL Neutrophils (%) (Auto) 60.8 % Lymphocytes (%) (Auto) 25.4 % Monocytes (%) (Auto) 9.3 % Eosinophils (%) (Auto) 2.2 % Basophils (%) (Auto) 0.2 % Neutrophils # (Auto) 7.92 K/uL Lymphocytes # (Auto) 3.31 K/uL Monocytes # (Auto) 1.21 K/uL Eosinophils # (Auto) 0.28 K/uL Basophils # (Auto) 0.02 K/uL RDW Standard Deviation 47.3 fL RDW Coefficient of Variation 13.6 % Immature Granulocyte % (Auto) 2.1 % Immature Granulocyte # (Auto) 0.27 K/uL Assessment and Plan Problem List Medical Problems: (1) De Quervain's disease (tenosynovitis) Status: Acute (2) Fever Status: Acute (3) Status: Acute (4) Wrist tendonitis Status: Acute Post-Op Day#: 2 Continue Routine Care: POD#2 doing well. Wound care has been consulted, will be seeing patient tomorrow. Continue ambulation and PO hydration. Plan for discharge home tomorrow.
[2017-07-24 07:41] LABS: HEMATOCRIT 33.9 % (37-47)
[2017-07-24 07:50] VITALS: BP 117/72; PULSE 87; TEMP 36.8; O2SAT 97
[2017-07-24] MEDS: PRENATAL VITAMIN TAB PO SCH (07:54)
[2017-07-24] MEDS: DOCUSATE SODIUM 100 MG CAP PO SCH ×2 (07:54→20:29)
[2017-07-24] MEDS: SIMETHICONE 80 MG CHEW PO SCH ×4 (07:54→20:29)
[2017-07-24 11:00] VITALS: BP 90/60; PULSE 73; TEMP 36.7
[2017-07-24] MEDS ORDERED: NURSING VERBAL MED ORDER ONE (12:00)
[2017-07-24] MEDS: MAGNESIUM HYDROXIDE SUSP 30 ML UDC PO PRN (13:59)
[2017-07-24 15:30] VITALS: BP 104/68; PULSE 82; TEMP 36.4
[2017-07-25 00:20] VITALS: BP 114/74; PULSE 81; TEMP 37.1; O2SAT 95
[2017-07-25] MEDS: IBUPROFEN 600 MG TAB PO PRN ×5 (02:28→21:15)
[2017-07-25] MEDS: OXYCODONE/ACETAMINOPHEN 5-325 TAB PO PRN ×5 (02:29→21:14)
--- NOTE | 2017-07-25 06:09 | Discharge Instructions ---
Discharge Instructions Date of Service Jul 25, 2017. Admission Reason for Admission: Previous Section Discharge Discharge Diagnosis / Problem: recovery from section Discharge Goals Goal(s): Routine recovery after Medications Continue Dispensed Medications: supercream, dermaplast, tucks Activity Recommendations Activity Limitations: per Instructions/Follow-up section . Instructions / Follow-Up Instructions / Follow-Up ACTIVITY RECOMMENDATIONS: * Gradual return to full activity over the next 2-3 weeks. * No lifting - nothing heavier than baby over the next 2-3 weeks. * Do not engage in vigorous exercise, sexual activity or sports until cleared by your physician. * Do not drive or operate any motorized equipment until cleared by your physician. * You may shower/bathe daily. MEDICATIONS: For discomfort or pain, you may use Acetaminophen (Tylenol), Ibuprofen (Advil), or Naproxen (Aleve) following the package directions. For constipation you may use Colace following the package directions. BREAST CARE: If you are not breast feeding: * Wear a supportive bra 24 hours a day for one to two weeks. * Avoid stimulating your breasts and nipples as much as possible during the first few weeks after delivery. * When taking a shower, have the warm water hit your back, not breasts. * When your breasts feel full, apply ice packs. Usually three to four times a day helps ease the discomfort. * Take a mild pain medication (Tylenol / Motrin) when you are uncomfortable. If breast feeding: * Use breast milk to lubricate nipples. Lansinoh cream may be used for sore nipples. You do not need to remove cream prior to breast feeding. If using a different brand of cream, check the label for directions regarding removal of cream prior to nursing. * Wear a supportive bra. * If having problems with breasts or breast feeding, call a insurance consultant or your health care provider. SPECIAL CARE INSTRUCTIONS: When you are discharged from the hospital, it is important for you to follow the instructions listed below: * During the first week at home, you should be able to care for yourself and your baby. In addition, the usual light household activities are encouraged. * Limit your activities to the way you feel. Do not try to clean the house or move furniture. Be sensible. * If you actively engage in sports and have done so up until the time of your delivery, you may resume these activities as soon as you feel able. This may take up to one month or even longer. Use good judgment. * Continue to take your vitamins for at least six weeks after the of your baby. * Your diet need not be limited unless you were on a special diet before your delivery. Breast-feeding mothers need around 2500 calories per day and at least 64-80 ounces of fluid per day (8 to 10 glasses). * You should eat foods from the four major food groups. Crash diets or fad diets are to be avoided. Eating lean meats, fresh fruits and vegetables, low-fat dairy products, high fiber foods and a regular exercise program, will help you get back to your pre- weight without putting your health at risk. * Constipation is sometimes a problem after delivery. Take a mild laxative as needed. If breast feeding, Milk of Magnesia is acceptable to use. You may use a suppository or Fleets enema. * A daily shower or tub bath is suggested. Wash incision daily with warm soapy water and pat dry. It doesn't need to be covered unless drainage is present. * A bloody vaginal discharge will usually continue until around four weeks . A small amount of bleeding may continue for as long as six weeks. Vaginal discharge changes from the bright red bleeding after delivery to pink then brownish and finally yellowish-pink before becoming white and disappearing. * Bleeding may increase with activity. Your first period may come in 4-8 weeks. If you are breast feeding, your period may be delayed even longer. * [place] (sex) can begin whenever both you and your partner feel comfortable and do not have any form of genital infection. It is recommended that you wait at least six weeks for internal and external healing to occur. If you have questions, please talk to your health care practitioner. A condom should be used to prevent infection and . * Foreplay, gentle intercourse and lubrication is very important the first several times to prevent pain. A water-based lubricant such as K-Y jelly or Astroglide may be used. * If you have RH negative blood and your baby is RH positive, you will receive RHOGAM by injection prior to discharge. The nurse will give you a card to keep with you that has the date and place that you received RHOGAM after delivery. * During your care, you had a Rubella screen done to check for the presence of rubella antibodies in your blood. If your test was negative, you will receive a Rubella vaccine prior to discharge. This vaccine may cause a fever, soreness at the injection site and flu-like symptoms. If these symptoms persist, notify your health care practitioner. is not advised for one month after a Rubella vaccine. * Verbalizes understanding of car seat law as reviewed with patient nursing. * Car Seat hand-out given and reviewed with patient by nursing. * Shaken baby information reviewed with patient by nursing. Call you doctor if: * Heavy bleeding (saturating several pads an hour) or passing clots the size of your fist. * A fever >101 degrees F (38.3 degrees C) on two occasions four hours apart and /or chills. * Unusual pain in the pelvic or vaginal areas. * Call the doctor for any increased redness, drainage or swelling around the incision and any pain unrelieved by prescribed pain medication. * "Baby Blues" lasting longer than two weeks. If you have any questions or concerns, call your health care practitioner at . FOLLOW UP VISIT: * Please call the office at to schedule a 6 week examination. It is important you keep this appointment. It is important for you to make arrangements for either yearly or twice yearly check-ups thereafter. Current Hospital Diet Patient's current hospital diet: Regular OB Diet Discharge Diet Recommended Diet: Regular OB Diet Procedures Procedures Performed: REPEAT LOWER TRANSVERSE CAESAREAN SECTION Pending Studies Studies pending at discharge: no Medical Emergencies . Who to Call and When: Medical Emergencies: If at any time you feel your situation is an emergency, please call 911 immediately. . Non-Emergent Contact Non-Emergency issues call your: Supervisor Chlorine Liquefaction Call Non-Emergent contact if: temperature is above 101.5 . . "Provider Documentation" section prepared by [employer]. . VTE Core Measure Inpt VTE Proph given/why not?: SCD's [place] Drug Monitoring Program Search Results: patient reviewed within database
--- NOTE | 2017-07-25 06:44 | OB/GYN Progress Note ---
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 Subjective conversation w/ patient, conversation w/ family, physical exam, chart review, lab review Ambulation: limited ambulation Voiding: no voiding problems Passing Gas: Yes Diet Tolerance: Regular Diet Lochia: Small Feeding Type: Breast Feeding Pain: Incision and right hip. Worse with mov. Relieved by Percoet and Motrin Review of Systems Constitutional: No fever, No chills, No sweats Respiratory: No cough, No shortness of breath Cardiac: No chest pain Abdomen: No pain, No nausea, No vomiting Female : No dysuria Objective Vital Signs Date Time Temp Pulse Resp B/P (MAP) Pulse Ox O2 Delivery O2 Flow Rate FiO2 07/25/17 00:20 Room Air 07/25/17 00:20 37.1 81 16 114/74 (87) 95 Room Air 07/24/17 15:30 36.4 82 20 104/68 (80) Room Air 07/24/17 15:30 Room Air 07/24/17 11:00 36.7 73 20 90/60 (70) Room Air 07/24/17 07:50 97 Room Air 07/24/17 07:50 36.8 87 20 117/72 (87) 97 Room Air Physical Exam General Appearance: WELL-APPEARING, WD/WN, NO APPARENT DISTRESS Respiratory/Chest: lungs clear, normal breath sounds Cardiovascular: regular rate, rhythm, no murmur Abdomen: non tender, soft, no organomegaly Fundus: Firm Incision Description: Clean, Dry & Intact Extremities: no calf tenderness, + pedal edema Laboratory Results Last 24 Hours Test 07/24/17 06:46 Hemoglobin 11.0 g/dL Hematocrit 33.9 % Assessment and Plan Post-Op Day Number: 3 Continue Routine Care: 26 f now 3. Delivered C section, post op day 3 @ 39.2 wks. Pt is GBS-/RI/O- Pt is doing well clinically. Vitals were reviewed and WNL. HGB at admission was 13.1---> 11 (07/24). No s/sx of anemia Plan; 1. Continue normal pp care; encourage ambulation, control pain, support BF, monitor bleeding 2. Wound consult today. Resident Physician Supervision Note: I was present with Dr. Cox during the history and exam. I discussed the case with the resident and agree with the findings and plan as documented in the note. Any exceptions or clarifications are listed here: POD#3, healing well from . Plan today for wound care to examine her right hip wound, right leg/thigh. Will need followup plan for continued treatment of the wound. Patient has been seen by physical therapy, will request that they come back to evaluate patient prior to discharge - if needed/recommended by PT, will keep pt until POD#4 for PT to work with patient to increase mobility with the walker prior to going home. Documented By: Jo-Ann Ellis
[2017-07-25 07:32] VITALS: BP 119/76; PULSE 75; TEMP 36.6
[2017-07-25] MEDS: PRENATAL VITAMIN TAB PO SCH (07:47)
[2017-07-25] MEDS: DOCUSATE SODIUM 100 MG CAP PO SCH ×2 (07:47→21:09)
[2017-07-25] MEDS: SIMETHICONE 80 MG CHEW PO SCH ×4 (07:48→21:09)
[2017-07-25] MEDS ORDERED: MISC-836 (08:41)
[2017-07-25] MEDS ORDERED: MISC-573 (08:41)
[2017-07-25] MEDS ORDERED: OXYC-57 PO (08:56)
[2017-07-25 10:18] VITALS: BP 119/76; PULSE 75; O2SAT 95
--- NOTE | 2017-07-25 14:18 | DIAGNOSTIC IMAGING REPORT ---
CT SCAN OF THE RIGHT LOWER EXTREMITY WITHOUT IV CONTRAST CLINICAL HISTORY: Cellulitis of the right hip and thigh. Reported history of osteomyelitis and necrotizing fasciitis. Reported history of section. COMPARISON STUDY: MRI of the right hip dated 04/16/2017. Ultrasound of the right thigh dated 06/24/2017. TECHNIQUE: CT scan of the right lower extremity was performed from the bony pelvis to the knee. Images are reviewed in the axial, sagittal, and coronal planes. IV contrast was not administered for this examination. A dose lowering technique was utilized adhering to the principles of ALARA. CT DOSE: 557.62 mGy.cm FINDINGS: The skeletal structures are osteopenic. No fracture is seen. There is age-advanced arthritic change and joint space narrowing involving the right hip joint. Periostitis is seen along the femoral neck. Patchy sclerotic change with subchondral cyst formation is present in the femoral head and the acetabulum. There is a small joint effusion versus bursal fluid around the right hip. These findings are similar to the 04/16/2017 MRI examination. There is only mild subcutaneous soft tissue edema present in the right upper thigh. No organized fluid collection is seen to indicate abscess. A cutaneous defect overlying the right hip is likely related to previous surgery. There is mild generalized atrophy of the regional musculature. Trace deep fluid is seen tracking along the lateral quadriceps musculature. A large density in the pelvis likely represents the post gravid uterus. Partially visualized and induration within the ventral pelvic wall with small foci of simultaneous gas may be related to the reported history of recent section. There are prominent right inguinal lymph nodes, likely on a reactive basis. IMPRESSION: 1. There is disuse osteopenia. 2. There is mild soft tissue induration and stranding identified within the upper thigh, possible representing cellulitis. No organized fluid collection is seen to suggest abscess. 3. There is age-advanced arthritic change in the right hip with nonspecific periostitis involving the right femoral neck and a small joint effusion versus bursal fluid. This is similar to the 04/16/2017 examination. This could be related to degenerative change, chronic posttraumatic change, or chronic osteomyelitis. Follow-up with the patient's orthopedic surgeon is recommended. 4. Foci of induration within the ventral abdominal wall as well as small foci of subcutaneous gas are likely related to a reported history of section given an enlarged post gravid appearing uterus. Clinical correlation will be essential. Dictated: 07/25/2017 1:45 PM Transcribed: 07/25/2017 2:17 PM [email or web address] Electronically signed by: Chente Mclaughlin M.D. 07/25/2017 2:32 PM Dictated Date/Time: 07/25/2017 1:45 PM
[2017-07-25 17:30] VITALS: BP 117/73; PULSE 69; TEMP 36.4
[2017-07-25 19:45] VITALS: BP 119/76; PULSE 77; TEMP 36.5
[2017-07-25 23:45] VITALS: BP 115/76; PULSE 88; TEMP 36.7; O2SAT 97
[2017-07-26] MEDS: IBUPROFEN 600 MG TAB PO PRN ×4 (03:07→20:45)
[2017-07-26] MEDS: OXYCODONE/ACETAMINOPHEN 5-325 TAB PO PRN ×5 (03:08→20:46)
--- NOTE | 2017-07-26 06:04 | OB/GYN Progress Note ---
QUILL LAYER Progress Note Date of Service Jul 26, 2017. Subjective conversation w/ patient, conversation w/ family, physical exam, chart review, lab review Ambulation: limited ambulation Voiding: no voiding problems Passing Gas: Yes Diet Tolerance: Regular Diet Lochia: Small Feeding Type: Breast Feeding Review of Systems Constitutional: No fever, No chills Respiratory: No shortness of breath Cardiac: No chest pain, No palpitations Abdomen: No pain, No nausea, No vomiting Female : No dysuria Objective Vital Signs Date Time Temp Pulse Resp B/P (MAP) Pulse Ox O2 Delivery O2 Flow Rate FiO2 07/25/17 23:45 97 Room Air 07/25/17 23:45 36.7 88 20 115/76 (89) 97 Room Air 07/25/17 19:45 36.5 77 16 119/76 (90) Room Air 07/25/17 17:30 36.4 69 20 117/73 (88) 07/25/17 10:18 75 95 07/25/17 08:00 Room Air 07/25/17 07:32 36.6 75 18 119/76 (90) Room Air Physical Exam General Appearance: WELL-APPEARING, WD/WN, NO APPARENT DISTRESS Respiratory/Chest: lungs clear, normal breath sounds Cardiovascular: regular rate, rhythm, no murmur Abdomen: non tender, soft Fundus: Firm Extremities: no calf tenderness, + pedal edema (bilateral ) Assessment and Plan Post-Op Day Number: 4 Continue Routine Care: 26 f now 3. Delivered C section, post op day 4 @ 39.2 wks. Pt is GBS-/RI/O- Pt is doing well clinically, recovering well from . There is concern regarding patients functional status. Vitals were reviewed and WNL. HGB at admission was 13.1---> 11 (07/24). No s/sx of anemia Plan; 1. Continue normal pp care; encourage ambulation, control pain, support BF, monitor bleeding 2. PT evaluation yesterday-->recommend inpatient rehab. Wound care consulted yesterday-->Patient will follow up closely in the outpatient with environmental communications specialist. 3. Will further discuss discharge planning during attending rounds. Will call long term care social worker. Needs case liner for PT inpatient Resident Physician Supervision Note: I was present with Dr. Cox during the history and exam. I discussed the case with the resident and agree with the findings and plan as documented in the note. Any exceptions or clarifications are listed here: [None] Documented By: Jaret Kruse
[2017-07-26 07:30] VITALS: BP 107/69; PULSE 76; TEMP 36.9; O2SAT 98
[2017-07-26] MEDS: PRENATAL VITAMIN TAB PO SCH (08:33)
[2017-07-26] MEDS: DOCUSATE SODIUM 100 MG CAP PO SCH ×2 (08:33→20:38)
[2017-07-26] MEDS: SIMETHICONE 80 MG CHEW PO SCH ×4 (08:33→20:38)
[2017-07-26 11:35] VITALS: BP 118/77; PULSE 77; TEMP 36.9; O2SAT 97
[2017-07-26 15:26] VITALS: BP 121/78; PULSE 76; TEMP 36.3; O2SAT 97
--- NOTE | 2017-07-26 19:25 | Progress Note ---
Subjective Jul 26, 2017. Subjective Ambulation: limited ambulation Voiding: no voiding problems Feeding Type: Breast Feeding Comment: patient was seen for both OT & PT consultations for discharge planning. Objective Vital Signs Date Time Temp Pulse Resp B/P (MAP) Pulse Ox O2 Delivery O2 Flow Rate FiO2 07/26/17 15:26 36.3 76 20 121/78 (92) 97 Room Air 07/26/17 11:35 36.9 77 14 118/77 (91) 97 07/26/17 08:45 Room Air 07/26/17 07:30 36.9 76 20 107/69 (82) 98 Room Air 07/25/17 23:45 97 Room Air 07/25/17 23:45 36.7 88 20 115/76 (89) 97 Room Air 07/25/17 19:45 36.5 77 16 119/76 (90) Room Air Assessment and Plan Problem List Medical Problems: (1) De Quervain's disease (tenosynovitis) Status: Acute (2) Fever Status: Acute (3) Status: Acute (4) Wrist tendonitis Status: Acute Post-Op Day#: 2 Continue Routine Care: patient was to be discharged to [facility] for continued care of her hip. ambulation is limited.unfortunately at this time of night there is still no bed available. Patient will not have assistance if discharged to home tonight but can make arrangements for assistance tomorrow morning. will cancel discharge tonight pending either available bed at [facility] tomorrow or to home with temporary assistance
[2017-07-27 00:05] VITALS: BP 124/74; PULSE 79; TEMP 36.9
[2017-07-27] MEDS: MAGNESIUM HYDROXIDE SUSP 30 ML UDC PO PRN (00:58)
[2017-07-27] MEDS: OXYCODONE/ACETAMINOPHEN 5-325 TAB PO PRN ×5 (00:59→19:38)
[2017-07-27] MEDS: IBUPROFEN 600 MG TAB PO PRN ×4 (05:37→19:37)
[2017-07-27 07:48] VITALS: BP 116/78; PULSE 73; TEMP 36.7; O2SAT 97
[2017-07-27] MEDS: DOCUSATE SODIUM 100 MG CAP PO SCH ×2 (08:23→19:37)
[2017-07-27] MEDS: SIMETHICONE 80 MG CHEW PO SCH ×4 (08:23→19:37)
[2017-07-27] MEDS: PRENATAL VITAMIN TAB PO SCH (08:23)
[2017-07-27] MEDS ORDERED: MAGNESIUM HYDROXIDE SUSP 30 ML UDC PO PRN (08:30)
[2017-07-27] MEDS ORDERED: SENNA 8.6 MG TAB PO PRN (08:30)
[2017-07-27] MEDS ORDERED: BISACODYL 10 MG SUPP ONE (09:18)
[2017-07-27 15:35] VITALS: BP 118/73; PULSE 71; TEMP 36.3; O2SAT 98
--- NOTE | 2017-07-27 17:18 | Progress Note ---
Subjective Jul 27, 2017. Subjective chart review, conversation w/ business management consultant Voiding: no voiding problems Objective Vital Signs Date Time Temp Pulse Resp B/P (MAP) Pulse Ox O2 Delivery O2 Flow Rate FiO2 07/27/17 15:35 36.3 71 18 118/73 (88) 98 Room Air 07/27/17 15:35 Room Air 07/27/17 07:58 Room Air 07/27/17 07:48 36.7 73 13 116/78 (91) 97 Room Air 07/27/17 00:05 36.9 79 18 124/74 (91) Room Air 07/27/17 00:05 Room Air Assessment and Plan Problem List Medical Problems: (1) De Quervain's disease (tenosynovitis) Status: Acute (2) Fever Status: Acute (3) Status: Acute (4) Wrist tendonitis Status: Acute Post-Op Day#: 5 Continue Routine Care: - continued efforts to have the patient d/c'd to [facility] for further rehab on hip - Case management are trying to facilitate transfer - The physician at [facility] states the patient must have an orthopedics consult to access rehab potential - pt's orthopedic care has been in [place] - spoke with Dr. Ted Gotti, [facility] who is electrical parts reconditioner for unassigned ortho care - requested consult for evaluation per [facility] request - Dr. Gotti states he will see the patient within 24 hours
[2017-07-27] MEDS ORDERED: DOCUSATE SODIUM 100 MG CAP PO SCH (20:00)
[2017-07-28] MEDS: IBUPROFEN 600 MG TAB PO PRN ×3 (00:04→13:05)
[2017-07-28 00:05] VITALS: BP 120/68; PULSE 80; TEMP 36.3
[2017-07-28] MEDS: OXYCODONE/ACETAMINOPHEN 5-325 TAB PO PRN ×3 (00:05→13:05)
--- NOTE | 2017-07-28 06:03 | OB/GYN Progress Note ---
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 Subjective conversation w/ patient, physical exam, chart review, lab review Ambulation: limited ambulation Voiding: no voiding problems Passing Gas: Yes Diet Tolerance: Regular Diet Lochia: Small Feeding Type: Breast Feeding Pain: pelvic cramps with feeding. Reports pain in her improving. Review of Systems Constitutional: No fever, No chills Respiratory: No cough, No shortness of breath Cardiac: No chest pain, No edema Abdomen: No pain, No nausea, No vomiting Female : No dysuria Objective Vital Signs Date Time Temp Pulse Resp B/P (MAP) Pulse Ox O2 Delivery O2 Flow Rate FiO2 07/28/17 00:05 Room Air 07/28/17 00:05 36.3 80 20 120/68 (85) Room Air 07/27/17 15:35 36.3 71 18 118/73 (88) 98 Room Air 07/27/17 15:35 Room Air 07/27/17 07:58 Room Air 07/27/17 07:48 36.7 73 13 116/78 (91) 97 Room Air Physical Exam General Appearance: WELL-APPEARING, WD/WN, NO APPARENT DISTRESS Respiratory/Chest: lungs clear, normal breath sounds Cardiovascular: regular rate, rhythm, no murmur Abdomen: non tender, soft Fundus: Firm Incision Description: Clean, Dry & Intact Extremities: normal inspection, no pedal edema, no calf tenderness Assessment and Plan Post-Op Day Number: 6 Continue Routine Care: 26 F now 3 Patient is awaiting transfer to inpatient rehab at [facility]. Placement requires ortho consult. Ortho supposed to see the patient today. Will follow up with ortho. Plan; 1. Continue PT; patient is able to ambulate and is experiencing less pain 2. Ortho consult today 3. Support breast pumping 4. DC today; discussed instructions Resident Physician Supervision Note: I interviewed and examined the patient. Discussed with Dr. Cox and agree with findings and plan as documented in the note. Any exceptions or clarifications are listed here: Continue to struggle with d/c planning. [facility] now requesting Ortho consult before accepting pt in transfer, discussed with Ortho last PM and they will see patient today Documented By: Sigifredo Goff
[2017-07-28 08:00] VITALS: O2SAT 96
--- NOTE | 2017-07-28 08:25 | Orthopedic Consultation ---
Orthopedic Consultation Date of Consultation: Jul 28, 2017. Attending Physician: America Hodgson M.D. Reason for Consultation: Right hip pain History of Present Illness Patient is a 36-year-old female with long history of the right hip. She has previously had infections in this hip which is required open irrigation and debridement. She typically treats in [place] for this. She has developed significant arthritic change in the right hip. She is had pain in this right hip for the last month or month and a half. No new trauma. She locates most of her pain laterally as well as some pain in the groin. She denies fevers or chills. Denies any drainage from her previous incisions. She has a significant history of prior narcotic use. She is now status post section with continued right hip pain Past Medical/Surgical History Medical Problems: (1) De Quervain's disease (tenosynovitis) Status: Acute (2) Fever Status: Acute (3) Status: Acute (4) Wrist tendonitis Status: Acute Family History No significant family history Social History Smoking Status: Current Every Day Smoker Drug Use: none Marital Status: single Housing Status: lives with family Occupation Status: unemployed Allergies Coded Allergies: Penicillins (Verified Allergy, Mild, HIVES, 07/21/17) Amoxicillin (Verified Allergy, Unknown, Rash, 07/21/17) Clindamycin (Verified Allergy, Unknown, Rash, 07/21/17) Sulfa Antibiotics (Verified Allergy, Unknown, RASH, 07/21/17) Sulfamethoxazole w/Trimethoprim (Verified Allergy, Unknown, RASH, 07/21/17 ) Home Medications Scheduled Acetaminophen (Tylenol), 500 MG PO PRN Diphenhydramine Hcl (Benadryl Allergy), 25 MG PO PRN Multivit/Min/Iron/Fol Ac/Pren ( Vitamin), 1 TAB PO QPM Scheduled PRN Oxycodone/Acetaminophen 5MG/325MG (Percocet 5MG/325MG), 1 TABLET PO Q4H PRN for Pain Durable Medical Equipment Misc. Devices (Breast Pump), UNIT Misc. Devices (Roller Walker), UNIT Current Inpatient Medications Current Inpatient Medications Medications (Trade) Dose Ordered Sig/Lennie Route Start Time Stop Time Status Last Admin Dose Admin Lactated Ringer's 1,000 ml @ 125 mls/hr Q8H IV 07/22/17 08:44 08/21/17 08:43 07/22/17 22:01 125 MLS/HR Meperidine HCl (Demerol Inj) 50 mg Q4H PRN IV 07/23/17 01:30 08/06/17 01:29 Meperidine HCl (Demerol Inj) 75 mg Q4H PRN IV 07/23/17 01:30 08/06/17 01:29 Oxycodone/ Acetaminophen (Percocet 5-325mg Tab) 1 tab Q4H PRN PO 07/23/17 01:30 08/06/17 01:29 07/28/17 00:05 1 TAB Oxycodone/ Acetaminophen (Percocet 5-325mg Tab) 2 tab Q4H PRN PO 07/23/17 01:30 08/06/17 01:29 07/27/17 19:38 2 TAB Ibuprofen (Motrin Tab) 600 mg Q4H PRN PO 07/22/17 08:45 08/21/17 08:44 07/28/17 00:04 600 MG Prenat Multivit/ Rice/Iron/Folic Ac ( Vitamin Tab) 1 tab DAILY PO 07/23/17 08:00 08/22/17 07:59 07/27/17 08:23 1 TAB Docusate Sodium (coLACE CAP) 100 mg BID PO 07/22/17 20:00 08/21/17 19:59 07/27/17 19:37 100 MG Lanolin (Lanolin Oint) PRN PRN EXT 07/22/17 08:45 08/21/17 08:44 Simethicone (Mylicon Chew Tab) 80 mg QID PO 07/22/17 09:00 08/21/17 08:59 07/27/17 19:37 80 MG Diphenhydramine HCl (Benadryl Cap) 25 mg QID PRN PO 07/23/17 01:30 08/22/17 01:29 Diphenhydramine HCl (Benadryl Inj) 25 mg QID PRN IV 07/23/17 01:30 08/22/17 01:29 Magnesium Hydroxide (Milk Of Magnesia Susp) 30 ml DAILY PRN PO 07/24/17 12:00 08/23/17 11:59 07/27/17 00:58 30 ML Bisacodyl (Dulcolax Tab) 5 mg HS ONCE PO 07/28/17 22:00 07/28/17 22:01 Bisacodyl (Dulcolax Supp) 10 mg PRN PRN WA 07/29/17 08:30 08/28/17 08:29 Magnesium Hydroxide (Milk Of Magnesia Susp) 30 ml HS PRN PO 07/27/17 08:30 08/26/17 08:29 Senna (Senokot Tab) 17.2 mg HS PRN PO 07/27/17 08:30 08/26/17 08:29 Physical Exam Date Time Temp Pulse Resp B/P (MAP) Pulse Ox O2 Delivery O2 Flow Rate FiO2 07/28/17 00:05 Room Air 07/28/17 00:05 36.3 80 20 120/68 (85) Room Air 07/27/17 15:35 36.3 71 18 118/73 (88) 98 Room Air 07/27/17 15:35 Room Air Right hip: Her skin is normal except for a well-healed anterior scar. There is no surrounding erythema. There is no wound drainage. There is no swelling. No induration. No tenderness to palpation anteriorly. She has tenderness to palpation over the greater trochanter. Mild pain with internal or external rotation of hip. Some mild pain with flexion of the hip. General Appearance: WD/WN Head: normocephalic Eyes: normal inspection ENT: normal ENT inspection Neck: supple Respiratory/Chest: chest non-tender Cardiovascular: regular rate, rhythm Assessment & Plan Aggravation of right hip osteophyte arthritis Patient has a fairly comminuted. History of the right hip. She's had multiple irrigation and debridements for recurrent infection in the right hip. She typically treats in [place] for this issue. CT scan demonstrates that she has some post infectious arthritic change in the right hip. She's been having the pain that she is experienced currently for over a month or so now. My suspicion is that this is an aggravation of her underlying osteoarthritic change as her gait was likely altered secondary to her . I do feel it is appropriate for her to be transferred to inpatient rehabilitation for further rehabilitation after that she'll be able to tolerate the rehabilitation. Any further follow-up for her hip pain can be done with her treating physician in [place].
[2017-07-28] MEDS: DOCUSATE SODIUM 100 MG CAP PO SCH (09:08)
[2017-07-28] MEDS: SIMETHICONE 80 MG CHEW PO SCH ×2 (09:09→13:04)
[2017-07-28] MEDS: MAGNESIUM HYDROXIDE SUSP 30 ML UDC PO PRN (09:09)
[2017-07-28] MEDS: PRENATAL VITAMIN TAB PO SCH (09:09)
[2017-07-28 12:49] VITALS: BP 120/68; PULSE 80; TEMP 36.3; O2SAT 96
[2017-07-28] MEDS ORDERED: BISACODYL 5 MG TABEC PO ONE (22:00)
[2017-07-29] MEDS ORDERED: BISACODYL 10 MG SUPP PR PRN (08:30)
--- NOTE | 2017-08-02 09:02 | DISCHARGE SUMMARY ---
ADMIT DIAGNOSES: 1. Intrauterine at 39 and 2/7 weeks. 2. History of previous section x2, desires a repeat. 3. Drug use affecting . DISCHARGE DIAGNOSES: Same. PROCEDURES: Repeat lower transverse section, PT consult. HISTORY OF PRESENT ILLNESS: Louise is a 26-year-old 3, para 2-0-0-2, with an EDC of 07/27/2017 making her 39 and 2/7 weeks on the date of admission. She presents for repeat section. Her history is complicated by 2 previous sections, one in 2013 and one in 2014. The first was for nonreassuring heart testing and the second was for failure to progress after attempted . She presents for section #3. This has been complicated by late presentation and care. Her first OB visit was at 18 weeks and 1 day. She states that she was unsure about her last menstrual period. She has been taking chronic narcotics throughout the and per the patient's report, it has been weaning throughout the . She notes at the time of admission that the only medication she was taking was vitamin and has currently weaned off of narcotics. Additionally, [facility] is involved in this patient's care. She had a drug profile done on May 17 that was completely negative. The patient's history is also complicated by chronic hip issues for which she walks on crutches. For the rest of the patient's detailed history and physical, please see her dictated history and physical. ASSESSMENT: Louise is a 3, para 2 with due date of 07/27/2017 with a history of 2 previous sections and now presents for repeat section. HOSPITAL COURSE: The patient was admitted, she underwent a repeat lower transverse section with an estimated blood loss of 600 mL. Findings at the time of surgery revealed a gravid uterus, normal tubes and ovaries bilaterally. She delivered a viable fetus from cephalic presentation with Apgars of 8 and 9. The patient's postoperative course was complicated by pain management issues and difficulty with ambulation. She did tolerate a regular diet. She voided after the removal of her Segura catheter. She received a physical therapy consult as well as an orthopedic consult while admitted. She was discharged to inpatient rehab at [facility]. She was breast feeding and received a prescription for a breast pump. She received an orthopedic consult with the suspicion that there is an aggravation of the underlying osteoarthritic changes and her gait was likely shortened secondary to . They recommended transfer to inpatient rehabilitation, which was established on postoperative day #6. Her discharge hemoglobin and hematocrit were 11 and 33.9. CYS was involved in her care while she was at the hospital.
== END 2017-07-28 15:22 | disposition home health service (06) | DRG 766 ==
LOC: C.LD 05:41 → EDSTATUS 09:00 → C.OBG 13:49
PROVIDERS: ADMIT Obstetrics & Gynecology; ATTEND Obstetrics & Gynecology
PROC: 10D00Z1 Extraction of Products of Conception, Low, Open Approach (ICD-10-PCS; principal; 2017-07-22 07:30)
DX: O34.211 Maternal care for low transverse scar from previous cesarean delivery (principal); N85.8 Other specified noninflammatory disorders of uterus; O99.89 Other specified diseases and conditions complicating pregnancy, childbirth and the puerperium; M16.11 Unilateral primary osteoarthritis, right hip; R60.0 Localized edema; R26.2 Difficulty in walking, not elsewhere classified; O99.334 Smoking (tobacco) complicating childbirth; F17.210 Nicotine dependence, cigarettes, uncomplicated; O99.214 Obesity complicating childbirth; E66.9 Obesity, unspecified; Z68.34 Body mass index [BMI] 34.0-34.9, adult; Z37.0 Single live birth; Z75.1 Person awaiting admission to adequate facility elsewhere; Z98.890 Other specified postprocedural states; Z47.89 Encounter for other orthopedic aftercare; Z86.19 Personal history of other infectious and parasitic diseases; Z79.899 Other long term (current) drug therapy; Z92.29 Personal history of other drug therapy

== ENCOUNTER 2017-09-12 19:35 | Emergency (ER) | payer OTHER ==
[~2017-09-12] VITALS: Ht 165.1 cm; Wt 89.3 kg
[~2017-09-12 19:35] MED LIST changes: +CEPH-570 PO; +DOCU-94 PO; +DULO-24 PO; +MELO7.5T5 PO; +MIRT15TA3 PO; +MISC-573; +MISC-836; +MORP15TA PO; +OXYC-57 PO
[2017-09-12 20:01] VITALS: TEMP 36.9; Ht 165.1 cm; Wt 89.3 kg
[2017-09-12] MEDS ORDERED: CYM30 PO (23:42)
[2017-09-12 23:53] LABS: BASO % 0.5 %; BASO ABS # 0.05 K/uL (0-0.2); EOS % 11.6 %; EOS ABS # 1.18 K/uL (0-0.5); HEMATOCRIT 42.6 % (37-47); IG# 0.02 K/uL (0.00-0.02); LYMPH % 39.8 %; LYMPH ABS # 4.06 K/uL (1.2-3.4); MEAN CORPUSCULAR HEMOGLOBIN 30.2 pg (25-34); MEAN CORPUSCULAR HGB CONC 32.9 g/dl (32-36); MONO % 4.5 %; MONO ABS # 0.46 K/uL (0.11-0.59); NEUT % 43.4 %; NEUT ABS # 4.44 K/uL (1.4-6.5); PLATELET COUNT 231 K/uL (130-400); RED CELL DISTRIBUTION WIDTH SD 43.5 fL (36.4-46.3); WHITE BLOOD COUNT 10.21 K/uL (4.8-10.8)
[2017-09-13 00:10] LABS: ALBUMIN 3.7 gm/dl (3.4-5.0); CALCIUM 8.7 mg/dl (8.5-10.1); CREATININE 0.76 mg/dl (0.60-1.20); POTASSIUM 4.1 mmol/L (3.5-5.1)
[2017-09-13 00:13] LABS: TOTAL PROTEIN 7.1 gm/dl (6.4-8.2)
[2017-09-13 02:25] VITALS: BP 118/66; PULSE 71; O2SAT 96
--- NOTE | 2017-09-13 03:48 | EMERGENCY ROOM VISIT NOTE ---
History First contact with patient: 22:39 Chief Complaint: INFECTION Stated Complaint: INFECTION IN R HIP Nursing Triage Summary: juliocesar right hip infection unable to visualize in triage History of Present Illness The patient is a 26 year old female who presents to the Emergency Room with complaints of infection to her right hip. The patient has an exceptional history of right hip infection with necrotizing fasciitis. She required several months of hospitalization at [facility] in [place] where she had several procedures for debridement and wash out. The patient has been following with the wound clinic as her wound was left open to heal by secondary intention. She states that her large wound has finally closed, and began having some pain and irritation of the top of the wound. She went to her primary care physician this week where she was started on Keflex for possible infection. The patient has not had redness or edema in the area. No fevers or chills. She is concerned as there is a small weeping area that is new. She does not have injury or trauma to the area. No other changes noted. She rates her discomfort a 4/10. Review of Systems More than 10 systems were reviewed and otherwise negative with the exception of history of present illness. Past Medical/Surgical History Medical Problems: (1) heart rate non-reassuring affecting management of mother (2) Post term Surgical Problems: (1) History of tonsillectomy (2) Previous section Family History No significant family history Social History Smoking Status: Current Every Day Smoker Alcohol Use: none Drug Use: none Marital Status: single Housing Status: lives with family Occupation Status: unemployed Current/Historical Medications Scheduled Acetaminophen (Tylenol), 500 MG PO PRN Cephalexin (Keflex), 1 CAP PO TID Diphenhydramine Hcl (Benadryl Allergy), 25 MG PO PRN Duloxetine HCl (Duloxetine HCl), 30 MG PO QAM Meloxicam (Mobic), 7.5 MG PO DAILY Mirtazapine (Remeron), 1 TAB PO HS Multivit/Min/Iron/Fol Ac/Pren ( Vitamin), 1 TAB PO QPM Scheduled PRN Docusate Sodium (Colace), 1 CAP PO DAILY PRN for Constipation Morphine Sulfate Ir (Morphine Sulfate Ir), 15 MG PO QD PRN for Pain Oxycodone/Acetaminophen 5MG/325MG (Percocet 5MG/325MG), 1 TABLET PO Q8 PRN for Pain Physical Exam Vital Signs Date Time Temp Pulse Resp B/P (MAP) Pulse Ox O2 Delivery O2 Flow Rate FiO2 09/13/17 02:25 71 18 118/66 96 09/13/17 00:48 82 123/61 97 09/12/17 22:33 79 18 115/92 97 Room Air 09/12/17 20:01 36.9 67 20 111/72 100 Room Air Physical Exam VITALS: Vitals are noted on the nurse's note and reviewed by myself. Vital signs stable. GENERAL: Well-developed, well-nourished, white female, who is in no acute distress and resting comfortably. Patient is cooperative with the examination. HEART: Regular rate and rhythm without murmurs gallops or rubs. LUNGS: Clear to auscultation bilaterally without wheezes, rales or rhonchi. No retractions or accessory muscle use. ABDOMEN: Positive normal bowel sounds x 4. Soft, nontender, without masses or organomegaly. No guarding or rebound tenderness. MUSCULOSKELETAL: There is a large healed wound along the right hip area. The most superior aspect of this has a small area that is weeping clear fluid. This area is roughly in a skin fold and does not appear to be distinctly infectious. There is no dehiscence of the wound. No palpable abscess or significant edema/erythema. No crepitus noted. NEURO: Patient was alert and oriented to person place and time. CN II through XII grossly intact. Medical Decision & Procedures ER Provider Diagnostic Interpretation: Preliminary Findings Only See Final Report For Complete Findings CT ABDOMEN & PELVIS With Contrast: No bowel dilation or free air Moderate colonic stool Abdominal solid organs and gallbladder appear within limits Normal caliber retrocecal appendix without secondary signs Ovaries appear within limits Trace left pelvic free fluid suggested No evidence of abscess Severe appearing right hip degenerative change, sequela of previous septic joint Laboratory Results 09/12/17 23:25 Red Blood Count 4.63, Mean Corpuscular Volume 92.0, Mean Corpuscular Hemoglobin 30.2, Mean Corpuscular Hemoglobin Concent 32.9, Mean Platelet Volume 10.0, Neutrophils (%) (Auto) 43.4, Lymphocytes (%) (Auto) 39.8, Monocytes (%) (Auto) 4.5, Eosinophils (%) (Auto) 11.6, Basophils (%) (Auto) 0.5, Neutrophils # (Auto ) 4.44, Lymphocytes # (Auto) 4.06, Monocytes # (Auto) 0.46, Eosinophils # (Auto ) 1.18, Basophils # (Auto) 0.05 09/12/17 23:25 Test 09/12/17 23:25 09/12/17 23:44 White Blood Count 10.21 K/uL (4.8-10.8) Red Blood Count 4.63 M/uL (4.2-5.4) Hemoglobin 14.0 g/dL (12.0-16.0) Hematocrit 42.6 % (37-47) Mean Corpuscular Volume 92.0 fL (80-100) Mean Corpuscular Hemoglobin 30.2 pg (25-34) Mean Corpuscular Hemoglobin Concent 32.9 g/dl (32-36) Platelet Count 231 K/uL (130-400) Mean Platelet Volume 10.0 fL (7.4-10.4) Neutrophils (%) (Auto) 43.4 % Lymphocytes (%) (Auto) 39.8 % Monocytes (%) (Auto) 4.5 % Eosinophils (%) (Auto) 11.6 % Basophils (%) (Auto) 0.5 % Neutrophils # (Auto) 4.44 K/uL (1.4-6.5) Lymphocytes # (Auto) 4.06 K/uL (1.2-3.4) Monocytes # (Auto) 0.46 K/uL (0.11-0.59) Eosinophils # (Auto) 1.18 K/uL (0-0.5) Basophils # (Auto) 0.05 K/uL (0-0.2) RDW Standard Deviation 43.5 fL (36.4-46.3) RDW Coefficient of Variation 13.0 % (11.5-14.5) Immature Granulocyte % (Auto) 0.2 % Immature Granulocyte # (Auto) 0.02 K/uL (0.00-0.02) Erythrocyte Sedimentation Rate 7 mm/hr (0-21) Anion Gap 8.0 mmol/L (3-11) Est Creatinine Clear Calc Drug Dose 123.8 ml/min Estimated GFR () 125.5 Estimated GFR (Non- 108.3 BUN/Creatinine Ratio 16.8 (10-20) Calcium Level 8.7 mg/dl (8.5-10.1) Total Bilirubin 0.2 mg/dl (0.2-1) Aspartate Amino Transf (AST/SGOT) 18 U/L (15-37) Alanine Aminotransferase (ALT/SGPT) 32 U/L (12-78) Alkaline Phosphatase 104 U/L (45-117) C-Reactive Protein 0.36 mg/dl (0-0.29) Total Protein 7.1 gm/dl (6.4-8.2) Albumin 3.7 gm/dl (3.4-5.0) Globulin 3.4 gm/dl (2.5-4.0) Albumin/Globulin Ratio 1.1 (0.9-2) Bedside Lactic Acid Venous 1.90 mmol/L (0.90-1.70) ED Course Physical exam and history were performed. Nursing notes, EMR, and Medication List were personally reviewed. Patient appears to have pain in her right hip over the past few days. She has an extensive and concerning history for necrotizing fasciitis that required significant hospitalization and surgical revision. She does not appear toxic on examination. IV access was established and labs were obtained. CT scan was performed to better identify her discomfort. The patient's blood work is as above and was reviewed. She does not have a significantly elevated white blood cell count, gross anemia, bandemia, or significant electrolyte imbalance. The patient's lactic acid is just minimally elevated at 1.9 with cultures pending. Her sedimentation rate is normal and CRP is also minimally elevated. CT scan returned and it was reviewed as above with my attending. The patient does not appear to have obvious abscess, air, or cellulitis on CT. I had a lengthy discussion with the patient and family regarding options of care. I do not appreciate a distinct infection at this time, however the patient should continue her Keflex. She has an appointment with her surgery team in about 2 months, and I feel that she should contact them for a sooner appointment. In the short-term however, I feel it is best that she see the wound clinic or her primary care physician. The patient was educated on monitoring for worsening symptoms and should certainly return to the ER if she has additional concerns. The patient was pleased with this and voiced understanding. She rated her discomfort a 1/10 at the time of departure. The chart was completed utilizing [employer] Voice Recognition Software. Grammatical errors, random word insertions, pronoun errors, and incomplete sentences are an occasional consequence of this system due to software limitations, ambient noise, and hardware issues. Any formal questions or concerns about the content, text, or information contained within the body of this dictation should be directly addressed to the provider for clarification. . Medical Decision Differential diagnosis: Etiologies such as cellulitis, abscess, MRSA infection, DVT, necrotizing fasciitis, osteomyelitis, acute on chronic pain, dermatitis, drug eruption, as well as others were entertained.. Impression Primary Impression: Right hip pain Departure Information Dispostion Home / Self-Care Condition GOOD Forms HOME CARE DOCUMENTATION FORM, IMPORTANT VISIT INFORMATION Patient Instructions My [facility] Additional Instructions You were seen and evaluated today on an emergency basis only. This is not a substitute for, or an effort to provide, complete comprehensive medical care. It is not possible to recognize and treat all injuries or illnesses in a single emergency department visit. For this reason it is recommended that you followup with your primary care physician or the wound care clinic in the next 1-2 days for recheck. Continue your medications as prescribed. You are welcome to return to the emergency department anytime with new, worsening, or concerning symptoms.
--- NOTE | 2017-09-13 08:16 | DIAGNOSTIC IMAGING REPORT ---
ABDOMEN AND PELVIS CT WITH IV CONTRAST CT DOSE: 758.87 mGy.cm HISTORY: Right hip infection. Lower abdominal pain. TECHNIQUE: Multiaxial CT images of the abdomen and pelvis were performed following the use of intravenous contrast. A dose lowering technique was utilized adhering to the principles of ALARA. COMPARISON STUDY: Abdomen and pelvis CT 04/01/2016. Right hip CT 07/25/2017. FINDINGS: The lung bases are clear. No pneumoperitoneum. No pneumatosis. Mild right femoral head deformity/flattening with advanced arthritic change within the right hip remains unchanged. Stable patchy areas of sclerosis within the right acetabulum. No new areas of bony destruction identified. Soft tissue thickening/scarring within the right anterior hip persists. Right hip subcutaneous edema has resolved. No loculated fluid collections to suggest an abscess. The liver, gallbladder, spleen, adrenal glands, pancreas, and kidneys are unremarkable. No retroperitoneal lymphadenopathy. The bladder, uterus, and bilateral adnexa are unremarkable. Mild/moderate stool seen within the colon and rectum. No bowel wall thickening or obstruction. Normal appendix. IMPRESSION: 1. No bowel wall thickening or obstruction. 2. Normal appendix. 3. Chronic changes within the right hip as described above. Electronically signed by: Randy Augustine M.D. 09/13/2017 8:15 AM Dictated Date/Time: 09/13/2017 8:10 AM
== END 2017-09-13 02:25 | disposition home or self-care (01) ==
LOC: C.EDB 19:37
DX: M25.551 Pain in right hip (principal); F17.200 Nicotine dependence, unspecified, uncomplicated

== ENCOUNTER → 2018-02-20 | Outpatient (CLI) | payer OTHER ==
[~2018-02-20] MED LIST changes: -CEPH-570 PO; +CYM30 PO; -DIPH1TAB87 PO; -DOCU-94 PO; -DULO-24 PO; +GADAVIST IV PRN; +MELO-83 PO; -MELO7.5T5 PO; -MISC-573; -MISC-836; -MORP15TA PO; +MORP1TAB11 PO; +ONDA4TAB10 SL; -PRENTAB26 PO
--- NOTE | 2018-02-20 15:53 | DIAGNOSTIC IMAGING REPORT ---
MRI THE RIGHT KNEE NO CONTRAST CLINICAL HISTORY: Chronic right knee pain COMPARISON STUDY: Conventional radiographic study dated 01/08/2018, CT scan dated 01/08/2018 FINDINGS: Imaging was performed in the axial, sagittal, and coronal planes. There are no areas of marrow edema to indicate occult fracture or bone bruise. The quadriceps and patellar tendons appear intact. The anterior and posterior cruciate ligaments appear intact. No meniscal tears are visualized. The medial and lateral collateral ligaments appear intact. IMPRESSION: No evidence of internal arrangement. Electronically signed by: Amari Lan M.D. 02/20/2018 3:52 PM Dictated Date/Time: 02/20/2018 3:48 PM
--- NOTE | 2018-02-20 16:49 | DIAGNOSTIC IMAGING REPORT ---
PELVIS MRI WITH AND WITHOUT INTRAVENOUS CONTRAST HISTORY: Right hip pain. R HIP,R KNEE,OSTEOMYEL,NECRO FASCIA TECHNIQUE: Multiple normal signal to MRI of the pelvis and right hip were performed both before and after the intravenous administration of contrast. COMPARISON STUDY: Pelvis MRI 04/17/2017. FINDINGS: There is full-thickness cartilage loss within the right hip with superomedial migration of the right femoral head. This remains unchanged. There is moderate irregularity and flattening of the femoral head with marginal osteophytes. This also remains unchanged. No significant hip effusion. Marrow edema within the right acetabulum and right femur has slightly progressed. Mild enhancement with in the right hip and surrounding soft tissues is noted. Focal tissue defect adjacent to the right anterior superior iliac spine which demonstrates thickening and increased T2 signal. This also demonstrates mild enhancement. This is similar to the prior study. No significant abnormality within the left hip. IMPRESSION: 1. Progression of the marrow edema within the right hip which demonstrates enhancement. There is also mild enhancement within the surrounding soft tissues. This associated severe osteoarthritis with possible chronic avascular necrosis which remains unchanged. No significant joint effusion. These findings are nonspecific but favor progressive degenerative change or chronic. An acute process would be impossible to exclude but considered less likely given the lack of a joint effusion. A chronic osteomyelitis could have a similar appearance in the appropriate clinical setting.. 2. No fracture or dislocation within the pelvis or hips. 3. No change in the scarlike defect adjacent to the right anterior superior iliac spine. Electronically signed by: Randy Augustine M.D. 02/20/2018 4:47 PM Dictated Date/Time: 02/20/2018 4:18 PM
== END | disposition home or self-care (01) ==
LOC: C.MRI 14:33
PROVIDERS: ATTEND Family Medicine
DX: M25.561 Pain in right knee (principal); G89.29 Other chronic pain; M25.551 Pain in right hip